=== PATIENT | female | born 1965 | race African-American/Black ===

== ENCOUNTER 2017-10-13 10:47 | Emergency (ER) | payer OTHER, SELFPAY ==
--- NOTE | 2017-10-13 14:30 | RAD ---
TWO VIEWS CHEST: History: Back pain, hip pain, cough. Date: 10-13-17 Comparison: 04-03-16 FINDINGS: There is cardiomegaly. Ectasia of the aorta is seen. The lungs are well aerated. No evidence of activ e intrathoracic disease. No evidence of effusions, pneumonia, or pneumothorax seen. IMPRESSION: Unremarkable two views chest. POS: [facility]
--- NOTE | 2017-10-13 14:32 | RAD ---
TWO VIEWS LEFT HIP: History: Pain. FINDINGS: AP and frog leg views of the left hip obtained and demonstrate no evidence of left hip fractures, sub luxations, or bony lesions. IMPRESSION: Normal two views left hip. POS: [facility]
--- NOTE | 2017-10-13 14:34 | RAD ---
LUMBAR SPINE THREE VIEWS: History: 51-year-old female with history of back and left hip pain for one month. Comparison: 04-03-15 FINDINGS: Thee is narrowing at L5-S1 and L3-4 with disc osteophytosis changes, evidence for spondylosis. No karen dence for acute fracture. Circumscribed calcific focus overlying the right abdomen probably a not emilio al calculus. Stable from prior study. IMPRESSION: Multilevel spondylosis particularly at L3-4 and L5-S1 levels. No fracture or dislocation. Stable from prior study. POS: [facility]
[2017-10-13] MEDS ORDERED: Ketorolac Tromethamine 60 MG/2 ML VIAL ONE (14:35)
== END 2017-10-13 14:17 | disposition home or self-care (01) ==
LOC: ERS 10:47
DX: M54.42 Lumbago with sciatica, left side (principal); J30.9 Allergic rhinitis, unspecified; I10 Essential (primary) hypertension; F32.9 Major depressive disorder, single episode, unspecified; F17.210 Nicotine dependence, cigarettes, uncomplicated
CPT/HCPCS: 71046; 72100; 96372; 99406; J1885

== ENCOUNTER 2017-10-22 15:09 | Emergency (ER) | payer SELFPAY ==
[2017-10-22] MEDS ORDERED: ISOVUE-370 76%-LOCM 1 ML ONE (15:15)
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
[2017-10-22 18:43] LABS: #Basophils 0.1 thou/uL (0.0-0.2); #Eosinphils 0.1 thou/uL (0.0-0.7); #Monocytes 0.6 thou/uL (0.11-0.59); #Neutrophils 2.6 thou/uL (1.40-6.50); %Basophils 1.7 % (0.0-1.0); %Lymphocytes 37.1 % (21.0-51.0); %Monocytes 11.1 % (0.0-10.0); %Neutrophils 48.1 % (42.0-75.0); Hemoglobin 12.6 g/dL (12.0-16.0); Mean Corpuscular HGB CONC 33.1 g/dL (32.0-36.0); Mean Corpuscular Hemoglobin 31.9 pg (27.0-31.0); Mean Corpuscular Volume 96.3 fl (81.0-99.0); Mean Platelet Volume 6.7 fL (7.4-10.4); Platelet Count 410 thou/uL (130-400); RBC Distribution Width 12.8 % (11.5-14.5); Red Blood Cell (RBC) Count 3.95 mill/uL (4.20-5.40); White Blood Cell (WBC) Count 5.4 thou/uL (4.8-10.8)
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
[2017-10-22] MEDS ORDERED: HYDROcodone/Acetaminophen 5/325 mg Tablet ONE (18:53)
[2017-10-22 19:00] LABS: Bilirubin Negative (Negative); Blood, Urine Negative (Negative); Clarity CLEAR (Clear); Glucose, Urine (Dipstick) Negative (Negative); Leukocyte Negative (Negative); Nitrite Negative (Negative); Protein, Urine (Dipstick) Negative (Neg-Trace); Specific Gravity, Urine 1.014 (1.002-1.036)
[2017-10-22 19:01] LABS: BHCG - Serum Negative (NEGATIVE); Pregs Control Background? CLEAR/WHITE (CLR/WHITE); Pregs Control Bar Appear? YES (CONTROL BAR)
[2017-10-22 19:03] LABS: Pregnancy Test - Urine (BHCG) Negative (Negative); Specific Gravity 1.014 (1.002-1.036)
[2017-10-22 19:04] LABS: Pregu Control Background? CLEAR/WHITE (CLR/WHITE); Pregu Control Bar Appear? YES (CONTROL BAR)
[2017-10-22 19:06] LABS: ALT (SGPT) 101 U/L (8-55); AST (SGOT) 102 U/L (5-34); Albumin 4.4 g/dL (3.5-5.0); Alkaline Phosphatase 62 U/L (40-150); Anion Gap 15 mmol/L (10-20); BUN (Urea Nitrogen) 11 mg/dL (7.0-18.7); Bilirubin, Total 0.6 mg/dL (0.2-1.2); CK (CPK) 679 U/L (29-168); Calc. Creatinine Clearance 0 mL/min (70-130); Calcium 9.8 mg/dL (7.8-10.44); Carbon Dioxide 25 mmol/L (22-29); Chloride 103 mmol/L (98-107); Estimated GFR-MDRD Greater than 90; Globulin 4.3 g/dL (2.4-3.5); Glucose 89 mg/dL (70-105); Lipase 27 U/L (8-78); Potassium 3.5 mmol/L (3.5-5.1); Protein, Total 8.7 g/dL (6.0-8.3); Sodium 139 mmol/L (136-145)
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
== END 2017-10-22 22:30 | disposition home or self-care (01) ==
LOC: ERS 15:09
DX: S00.83XA Contusion of other part of head, initial encounter (principal); M54.5 Low back pain; K04.7 Periapical abscess without sinus; R10.12 Left upper quadrant pain; I10 Essential (primary) hypertension; F32.9 Major depressive disorder, single episode, unspecified; Y04.2XXA Assault by strike against or bumped into by another person, initial encounter
CPT/HCPCS: 36415; 70450; 70486; 71260; 72125; 74177; 80053; 81003; 81025; 82550; 83690; 84703; 85025

== ENCOUNTER 2018-03-23 12:00 | Emergency (ER) | payer SELFPAY ==
[~2018-03-23 12:00] MED LIST: AMOXicillin 250 MG CAP ONE; Ibuprofen 200 MG TAB ONE; cloNIDine 0.1 MG TAB ONE; hydrOXYzine Pamoate 25 mg Capsule ONE
[2018-03-23] MEDS ORDERED: Dexamethasone 4 MG TAB ONE (13:01)
[2018-03-23] MEDS ORDERED: Famotidine 20 MG TAB ONE (13:01)
[2018-03-23] MEDS ORDERED: diphenhydrAMINE 50 MG CAP ONE (13:01)
== END 2018-03-23 14:01 | disposition home or self-care (01) ==
LOC: ERS 12:00
DX: T63.441A Toxic effect of venom of bees, accidental (unintentional), initial encounter (principal); M25.552 Pain in left hip; I10 Essential (primary) hypertension; F31.9 Bipolar disorder, unspecified; F20.9 Schizophrenia, unspecified; M19.90 Unspecified osteoarthritis, unspecified site; Z79.899 Other long term (current) drug therapy
CPT/HCPCS: 99282; J8540

== ENCOUNTER 2018-04-09 19:42 | Inpatient (IN) | payer SELFPAY ==
[2018-04-09 20:50] LABS: Bilirubin Negative (Negative); Blood, Urine Negative (Negative); Clarity CLEAR (Clear); Glucose, Urine (Dipstick) Negative (Negative); Leukocyte Trace (Negative); Nitrite Negative (Negative); Protein, Urine (Dipstick) Negative (Neg-Trace); Specific Gravity, Urine 1.015 (1.002-1.036); pH, Urine 7.5 (5.0-9.0)
[2018-04-09 20:52] LABS: Bacteria/HPF None Seen HPF (None Seen); Hyaline Casts/LPF 0-3 HYALINE CAST LPF (0-3 Hyaline); Pathc Cast-AUWi Flag 0.29 (0-2.49); RBC/HPF 0-3 HPF (0-3); Squamous Epithelial 0-3 HPF (0-3)
[2018-04-09 20:57] LABS: Pregnancy Test - Urine (BHCG) Negative (Negative); Pregu Control Background? CLEAR/WHITE (CLR/WHITE); Pregu Control Bar Appear? YES (CONTROL BAR); Specific Gravity 1.015 (1.002-1.036)
[2018-04-09 21:23] LABS: #Basophils 0.1 thou/uL (0.0-0.2); #Eosinphils 0.2 thou/uL (0.0-0.7); #Lymphocytes 3.3 thou/uL (1.20-3.40); #Monocytes 1.7 thou/uL (0.11-0.59); #Neutrophils 9.1 thou/uL (1.40-6.50); %Basophils 0.5 % (0.0-1.0); %Eosinophils 1.3 % (0.0-10.0); %Monocytes 11.5 % (0.0-10.0); %Neutrophils 63.7 % (42.0-75.0); Hemoglobin 10.9 g/dL (12.0-16.0); Mean Corpuscular HGB CONC 34.2 g/dL (32.0-36.0); Mean Corpuscular Hemoglobin 34.8 pg (27.0-31.0); Mean Platelet Volume 6.7 fL (7.4-10.4); Platelet Count 402 thou/uL (130-400); Red Blood Cell (RBC) Count 3.12 mill/uL (4.20-5.40); White Blood Cell (WBC) Count 14.3 thou/uL (4.8-10.8)
[2018-04-09 21:29] LABS: BHCG - Serum Negative (NEGATIVE); Pregs Control Background? CLEAR/WHITE (CLR/WHITE); Pregs Control Bar Appear? YES (CONTROL BAR)
[2018-04-09 21:39] LABS: ALT (SGPT) 24 U/L (8-55); AST (SGOT) 15 U/L (5-34); Albumin 3.6 g/dL (3.5-5.0); Alkaline Phosphatase 45 U/L (40-150); Anion Gap 13 mmol/L (10-20); BUN (Urea Nitrogen) 20 mg/dL (9.8-20.1); Bilirubin, Total 0.4 mg/dL (0.2-1.2); Calc. Creatinine Clearance 0 mL/min (70-130); Calcium 9.1 mg/dL (7.8-10.44); Carbon Dioxide 25 mmol/L (22-29); Chloride 103 mmol/L (98-107); Estimated GFR-MDRD 85; Globulin 3.4 g/dL (2.4-3.5); Glucose 88 mg/dL (70-105); Potassium 3.5 mmol/L (3.5-5.1); Sodium 137 mmol/L (136-145)
[2018-04-09] MEDS ORDERED: Piperacillin/Tazobactam 4.5 GM VIAL ONE (21:47)
[2018-04-09] MEDS ORDERED: Lidocaine 1% w/Epinephrine 1:100K 20 ML VIAL ONE (22:30)
[2018-04-09] MEDS ORDERED: Morphine 4 MG/ML VIAL ONE (22:31)
[2018-04-09] MEDS ORDERED: Vancomycin HCl 1.25 GM in Sodium Chloride 0.9% 250 ML 250 ML IVPB SCH (22:45)
--- NOTE | 2018-04-09 22:45 | PDOC.FPRHP ---
- History of Present Illness Chief Complaint: Leg pain History of Present Illness: Pt is a 52 yo F with pmh of cocain abuse hep C htn and alcohol abuse presenting with 2 day hx of L pain after being stung by a wasp. pt reports pain being sharp and worsening over 2 days with subjective fevers at home. On presentation to ED pt found to be tachycardic with elevated white count at 14.5. Pt was I&Dd in ED and reported some relief from that. ED Course: Incision and Drainage of superior LLE abscess - Allergies/Adverse Reactions Allergies Allergy/AdvReac Type Severity Reaction Status Date / Time No Known Allergies Allergy Verified 04/10/18 01:10 - Home Medications Medication Instructions Recorded Confirmed Type Amlodipine [Norvasc] 10 mg PO DAILY #0 tab 05/22/16 04/10/18 Rx Hydrochlorothiazide 12.5 mg PO BID #0 tab 05/22/16 04/10/18 Rx Triamcinolone Acetonide [Kenalog 1 gm TOP BID PRN #0 tube 05/22/16 Rx 0.1% Cream] Albuterol Sulfate [Ventolin HFA] 1 puff INH Q4HR PRN 04/10/18 04/10/18 History Cetirizine HCl [Cetirizine HCl 10 mg PO DAILY 04/10/18 04/10/18 History Chewable Tablet] Meloxicam 15 mg PO DAILY 04/10/18 04/10/18 History hydrOXYzine HCl [Hydroxyzine HCl] 25 mg PO 04/10/18 History - History PMHx: htn, hepC, bipolar PSHx: L lumpectomy, L oophorectomy FHx: none Social: 1/2 per day smoking, hx of cocaine abuse, hx of alcohol abuse (quit 1 month ago) - Review of Systems General: reports: fever/chills ENT: denies: nasal congestion, rhinorrhea Respiratory: denies: congestion, shortness of breath Cardiovascular: denies: chest pain, palpitation Gastrointestinal: denies: nausea, vomiting Skin: reports: lesions Musculoskeletal: denies: pain, stiffness Neurological: denies: numbness - Vital signs BP: [163/92] HR: [107] RR: [20] Tmax: [99.6] Pox: [97]% on [RA] Wt: [80] - Physical Exam Constitutional: well developed -Constitutional: in moderate distress due to pain. HEENT: normocephalic and atraumatic, EOMI, grossly normal vision, normal nasal mucosa, MMM Chest: no-tender to palpation Heart: RRR, normal S1/S2 Lungs: CTAB, no respiratory distress Abdomen: soft, non-tender Musculoskeletal: normal structure, normal tone -Skin: Skin LLE on posterior thigh: approximately [id number] area of erythema with bandage over incised abscess. possible residual cystic structures still palpated. warmth to tough, area marked with marker. Psychiatric: good judgment and insight FMR H&P: Results - Labs Result Diagrams: 04/10/18 02:29 04/10/18 02:29 Lab results: WBC 14.3 thou/uL (4.8-10.8) H 04/09/18 20:58 Hgb 10.9 g/dL (12.0-16.0) L 04/09/18 20:58 Hct 31.8 % (36.0-47.0) L 04/09/18 20:58 MCV 102.0 fL (78.0-98.0) H 04/09/18 20:58 Plt Count 402 thou/uL (130-400) H 04/09/18 20:58 Neutrophils % 63.7 % (42.0-75.0) 04/09/18 20:58 Sodium 137 mmol/L (136-145) 04/09/18 20:58 Potassium 3.5 mmol/L (3.5-5.1) 04/09/18 20:58 Chloride 103 mmol/L (98-107) 04/09/18 20:58 Carbon Dioxide 25 mmol/L (22-29) 04/09/18 20:58 BUN 20 mg/dL (9.8-20.1) 04/09/18 20:58 Creatinine 0.85 mg/dL (0.6-1.1) 04/09/18 20:58 Glucose 88 mg/dL (70-105) 04/09/18 20:58 Lactic Acid 1.1 mmol/L (0.5-2.2) 04/09/18 20:58 Calcium 9.1 mg/dL (7.8-10.44) 04/09/18 20:58 Total Bilirubin 0.4 mg/dL (0.2-1.2) 04/09/18 20:58 AST 15 U/L (5-34) 04/09/18 20:58 ALT 24 U/L (8-55) 04/09/18 20:58 Alkaline Phosphatase 45 U/L (40-150) 04/09/18 20:58 Serum Total Protein 7.0 g/dL (6.0-8.3) 04/09/18 20:58 Albumin 3.6 g/dL (3.5-5.0) 04/09/18 20:58 Urine Ketones Negative mg/dL (Negative) 04/09/18 20:30 Urine Blood Negative (Negative) 04/09/18 20:30 Urine Nitrite Negative (Negative) 04/09/18 20:30 Ur Leukocyte Esterase Trace (Negative) H 04/09/18 20:30 Urine RBC 0-3 HPF (0-3) 04/09/18 20:30 Urine WBC 7-10 HPF (0-3) H 04/09/18 20:30 Ur Squamous Epith Cells 0-3 HPF (0-3) 04/09/18 20:30 Urine Bacteria None Seen HPF (None Seen) 04/09/18 20:30 FMR H&P: A/P - Problem List (1) Cellulitis and abscess of right leg Current Visit: Yes Status: Acute Code(s): L03.115 - CELLULITIS OF RIGHT LOWER LIMB; L02.415 - CUTANEOUS ABSCESS OF RIGHT LOWER LIMB (2) Sepsis Current Visit: Yes Status: Acute Code(s): A41.9 - SEPSIS, UNSPECIFIED ORGANISM (3) Thrombocytosis Current Visit: Yes Status: Acute (4) Hepatitis C Current Visit: No Status: Acute Code(s): B19.20 - UNSPECIFIED VIRAL HEPATITIS C WITHOUT HEPATIC COMA (5) Hypertension Current Visit: No Status: Acute Code(s): I10 - ESSENTIAL (PRIMARY) HYPERTENSION (6) Polysubstance dependence including opioid type drug, episodic abuse Current Visit: No Status: Acute Code(s): F11.20 - OPIOID DEPENDENCE, UNCOMPLICATED; F19.20 - OTHER PSYCHOACTIVE SUBSTANCE DEPENDENCE, UNCOMPLICATED - Plan Sepsis secondary to lower extremity cellulitis. -tachycardia and WBC of 14. -Pt to receive 2 L NS. -s/p I&D in ED. -IV vanc -soft tissue US Macrocytic anemia - vitamin B12 and RBC folate. - likely secondary to history of alcohol abuse. Thrombocytosis - will continue to monitor. History of cocaine abuse. - remote history; will obtaine UDS History of alcohol abuse - Last drink 30 days ago. - will order ASE protocol; will hold-off on adding medications unless ASE scores > 10 HTN -home medications History of Hepatitis C infection. - currently untreated. - PCP working to obtain GI consultation Anxiety - prn hydroxyzine Back pain - continue Meloxicam. FMR H&P: Upper Level - Pertinent history Patient is a 52 year old female who presents to the ED due to leg pain for the past 3 days. She believes she have been bit by something. She reports redness, swelling and warmth to her posterior thigh. She denies fevers and chills. - Pertinent findings Vitals: BP 149/99 P: 109 RR: 20 T: 99.6 SpO2: 97% on RA. Physical exam: General: alert and oriented x 3; in no apparent distress. Heart: tachycardic, regular rhythm, no murmurs, rubs, or gallops. Lungs: Clear to auscultation bilaterally. Extremities: right posterior thigh with ~ 10 cm area of erythema and ~ 5 cm area of induration; s/p I&D. - Plan Date/Time: 04/09/182244 I, Kamilla Soliz, have evaluated this patient and agree with findings/plan as outlined by sales management intern resident. Pertinent changes/additions are listed here. Sepsis secondary to lower extremity cellulitis. - tachycardia and WBC of 14. - Pt to receive 2 L NS. - s/p I&D in ED. Macrocytic anemia - vitamin B12 and RBC folate. - likely secondary to history of alcohol abuse. Thrombocytosis - likely reactive. - will continue to monitor. History of cocaine abuse. - remote history; will obtaine UDS History of alcohol abuse - Last drink 30 days ago. - will order ASE protocol; will hold-off on adding medications unless ASE scores > 10 History of Hepatitis C infection. - currently untreated. - PCP working to obtain GI consultation Anxiety - prn hydroxyzine Back pain - continue Meloxicam. Attending Addendum - Attending Addendum Date/Time: 04/09/182038 I personally evaluated the patient and discussed the management with Dr. Bejarano and Dr. Soliz I agree with the History, Examination, Assessment and Plan documented above with any addition or exceptions noted below. 52 yo female admitted for sepsis related to abscess and cellulitis of left posterior thigh Admit for IV antibx. Blood cultures pending. Continue IVFs. Adjust home meds as needed. [facility]
[2018-04-09 23:50] LABS: Amphetamine Not Detected (NotDetected); Barbiturates Screen Not Detected (NotDetected); Benzodiazepine Screen Not Detected (NotDetected); Cocaine Metabolite Screen Not Detected (NotDetected); Medtox Reader # READER 4; Methadone Not Detected (NotDetected); Methamphetamine Not Detected (NotDetected); Opiate Screen Not Detected (NotDetected); Oxycodone Screen Not Detected (NotDetected); Phencyclidine (PCP) Not Detected (NotDetected); THC/Cannabinoid Screen Not Detected (NotDetected); Tricyclic Screen Not Detected (NotDetected)
[2018-04-09 23:51] LABS: Medtox Control Line Valid? VALID (VALID)
[2018-04-10] MEDS ORDERED: Sodium Chloride 0.9% 1,000 ML IV SCH (00:45)
[2018-04-10] MEDS ORDERED: Acetaminophen 325 MG TAB PO PRN (00:46)
[2018-04-10] MEDS ORDERED: Ondansetron HCl/PF 4 MG/2 ML Vial IVP PRN (00:46)
[2018-04-10] MEDS ORDERED: HYDROcodone/Acetaminophen 5/325 mg Tablet PO PRN ×2 (00:46)
[2018-04-10] MEDS ORDERED: Ondansetron ODT 4 MG TAB SL PRN (00:46)
[2018-04-10] MEDS ORDERED: Clindamycin/D5W 900 MG in Premix Bag 1 BAG IVPB SCH (01:00)
[2018-04-10] MEDS ORDERED: Ondansetron ODT 4 MG TAB PO PRN (01:03)
[2018-04-10 01:14] VITALS: BMI 29.8
[2018-04-10] MEDS: traMADol HCl 50 MG TAB PO PRN ×4 (01:54→18:01)
[2018-04-10] MEDS: Lactated Ringer's 1,000 ML IV SCH ×3 (01:56→14:33)
[2018-04-10] MEDS: Nicotine 14 MG PATCH TD SCH (02:05)
[2018-04-10 02:59] LABS: #Basophils 0.2 thou/uL (0.0-0.2); #Eosinphils 0.2 thou/uL (0.0-0.7); #Lymphocytes 3.7 thou/uL (1.20-3.40); #Monocytes 1.4 thou/uL (0.11-0.59); #Neutrophils 8.8 thou/uL (1.40-6.50); %Basophils 1.2 % (0.0-1.0); %Eosinophils 1.7 % (0.0-10.0); %Lymphocytes 26.2 % (21.0-51.0); %Monocytes 9.5 % (0.0-10.0); %Neutrophils 61.4 % (42.0-75.0); Hemoglobin 11.5 g/dL (12.0-16.0); Mean Corpuscular HGB CONC 33.1 g/dL (32.0-36.0); Mean Corpuscular Hemoglobin 33.6 pg (27.0-31.0); Mean Platelet Volume 6.7 fL (7.4-10.4); Platelet Count 437 thou/uL (130-400); RBC Distribution Width 12.9 % (11.5-14.5); White Blood Cell (WBC) Count 14.3 thou/uL (4.8-10.8)
[2018-04-10 03:05] LABS: Anion Gap 13 mmol/L (10-20); BUN (Urea Nitrogen) 14 mg/dL (9.8-20.1); Calc. Creatinine Clearance 99 mL/min (70-130); Carbon Dioxide 25 mmol/L (22-29); Chloride 104 mmol/L (98-107); Estimated GFR-MDRD 90; Glucose 97 mg/dL (70-105); Potassium 3.9 mmol/L (3.5-5.1); Sodium 138 mmol/L (136-145)
[2018-04-10] MEDS ORDERED: Triamcinolone 0.1% Cream 15 GM TUBE TOP PRN (04:35)
[2018-04-10] MEDS ORDERED: PROVENTIL INHALER 6.7 G (200 INHALATIONS) INH PRN (04:35)
--- NOTE | 2018-04-10 05:38 | PDOC.FM ---
- Subjective Subjective: NAEO. Patient states she is in 10/10 pain this AM. Denies any associated fever/ chills, N/V/D or constipation. Says her appetite is good. Thinks the swelling and redness have worsened overnight. Was not able to sleep at all 2/2 anxiety. - Objective MAR Reviewed: Yes Vital Signs & Weight: Vital Signs (12 hours) Temp Pulse Resp BP Pulse Ox 04/10/18 04:00 99.9 F H 103 H 20 155/84 H 93 L 04/10/18 00:50 99.7 F H 106 H 20 151/98 H 94 L Weight Weight 76.402 kg I&O: 04/08/18 04/09/18 04/10/18 06:59 06:59 06:59 Intake Total 1080 Balance 1080 Result Diagrams: 04/10/18 02:29 04/10/18 02:29 <Jocelyn Lazaro - Last Filed: 04/10/18 08:29> - Objective Vital Signs & Weight: Vital Signs (12 hours) Temp Pulse Resp BP BP Pulse Ox 04/10/18 10:11 99.8 F H 04/10/18 08:46 101 H 04/10/18 08:00 159/99 H 04/10/18 07:45 101.3 F H 101 H 18 159/99 H 94 L 04/10/18 04:00 99.9 F H 103 H 20 155/84 H 93 L 04/10/18 00:50 99.7 F H 106 H 20 151/98 H 94 L Weight Weight 76.402 kg I&O: 04/09/18 04/10/18 04/11/18 06:59 06:59 06:59 Intake Total 1080 Balance 1080 Result Diagrams: 04/10/18 02:29 04/10/18 02:29 <Gaurav Degroot - Last Filed: 04/10/18 11:33> Phys Exam - Physical Examination Constitutional: NAD HEENT: moist MMs Neck: supple, full ROM Respiratory: no wheezing, no rales, no rhonchi, clear to auscultation bilateral Cardiovascular: RRR, no significant murmur Gastrointestinal: soft, non-tender, no distention, positive bowel sounds Musculoskeletal: edema present Neurological: non-focal, normal sensation, moves all 4 limbs Psychiatric: normal affect, A&O x 3 Skin: normal turgor Deviation from normal: ~ 11 x 7cm area of warmth & erythema w/ an ~ 5 cm area of induration -: purulent, sanguinous drainage noted under clear bandage over I&D site <Jocelyn Lazaro - Last Filed: 04/10/18 08:29> Dx/Plan (1) Sepsis Code(s): A41.9 - SEPSIS, UNSPECIFIED ORGANISM Status: Acute (2) Cellulitis and abscess of right leg Code(s): L03.115 - CELLULITIS OF RIGHT LOWER LIMB; L02.415 - CUTANEOUS ABSCESS OF RIGHT LOWER LIMB Status: Acute (3) Polysubstance dependence including opioid type drug, episodic abuse Code(s): F11.20 - OPIOID DEPENDENCE, UNCOMPLICATED; F19.20 - OTHER PSYCHOACTIVE SUBSTANCE DEPENDENCE, UNCOMPLICATED Status: Acute (4) Hepatitis C Code(s): B19.20 - UNSPECIFIED VIRAL HEPATITIS C WITHOUT HEPATIC COMA Status: Acute (5) Macrocytic anemia Code(s): D53.9 - NUTRITIONAL ANEMIA, UNSPECIFIED Status: Acute (6) Hypertension Code(s): I10 - ESSENTIAL (PRIMARY) HYPERTENSION Status: Acute (7) Thrombocytosis Status: Acute - Plan Plan: 52 YOF w/ PMH significant for HTN and polysubstance use who presented w/ cellulitis of RLE w/ abscess who is s/p I&D in the ED. 1. Sepsis secondary to RLE cellulitis w/ abscess s/p I&D. - Patient has remained tachycardic since getting to the floor but has remained afebrile. Will continue w/ LR @ 120mL/hr for fluid resuscitation in addition to PO hydration. - Will continue IV vancomycin. Abscess cultures pending as well as blood cultures. RLE U/S pending to determine if another I&D will be needed. - Will continue tylenol, meloxicam, & tramadol PRN for pain control and zofran for nausea. - Will continue to monitor vitals closely & continue tylenol PRN for fever. 2. Macrocytic anemia: - Likely 2/2 EtOH abuse vs. B12 vs. folate deficiency. - Will continue to monitor and consider workup if one has not been done on previous admissions. 3. Thrombocytosis - Likely reactive thrombocytosis 2/2 inflammation from cellulitis. - Will continue to monitor w/ QD CBCs. 4. HTN: - Aware, will resume home meds. 5. History of cocaine abuse. - Remote history per H&P. - UDS negative on admission. 6. History of alcohol abuse - Last drink 30 days ago per H&P. - Will continue ASE protocol. 7. h/o Hepatitis C infection. - Aware. - Currently untreated but PCP is working to obtain GI consultation on outpatient basis for treatment. 8. h/o chronic back pain: - Aware. - Will continue tylenol, meloxicam, and tramadol for pain control. 9. Anxiety: - Will continue hydroxyzine PRN for now. - Patient states she takes something at home for anxiety. Will look in clinic chart and restart any home meds if possible. <Jocelyn Lazaro - Last Filed: 04/10/18 08:29> Attending Addendum - Attending Addendum Date/Time: 04/10/18 1131 I personally evaluated the patient and discussed the management with Dr. Lazaro. I agree with the History, Examination, Assessment and Plan documented above with any addition or exceptions noted below. Patient admitted for sepsis 2/2 complicated cellulitis with abscess formation s/ p I&D in the ER. She continues to experience pain and have spiking fevers on Vanc therapy. U/S shows continued fluid collection, and so we will consult General Surgery for bedside I&D versus need for I&D and wound cleanout in the OR. Continue Vanc but add Clinda at this time for toxin binding properties. Blood and wound cultures pending. Continue fluid therapy and attain adequate pain control. Anticipate several more days of hospitalization needed. <Gaurav Degroot - Last Filed: 04/10/18 11:33>
[2018-04-10] MEDS ORDERED: Piperacillin/Tazobactam 4.5 GM in Sodium Chloride 0.9% 100 ML IVPB SCH (06:00)
[2018-04-10] MEDS: Hydrochlorothiazide 25 MG TAB PO SCH ×2 (08:45→20:02)
[2018-04-10] MEDS: Famotidine 20 MG TAB PO SCH ×2 (08:45→20:02)
[2018-04-10] MEDS: Meloxicam 15 MG TAB PO SCH (08:45)
[2018-04-10] MEDS: Loratadine 10 MG TAB PO SCH (08:46)
[2018-04-10] MEDS: Enoxaparin Sodium 40 MG/0.4 ML SYRINGE SC SCH (08:46)
[2018-04-10] MEDS: Amlodipine 10 MG TAB PO SCH (08:46)
--- NOTE | 2018-04-10 09:27 | ULT ---
ULTRASOUND SOFT TISSUE OTHER: HISTORY: Left thigh cellulitis after an I&D. COMPARISON: None. FINDINGS: There is extensive inflammation in the subcutaneous fat. There is an area of phlegmonous soft tissue measuring 2.2 x 1.9 cm. There is extensive fluid interdigitation between the fascial septations. IMPRESSION: Evidence of cellulitis and phlegmonous soft tissue collection. POS: [facility]
[2018-04-10] MEDS: Vancomycin HCl 1.25 GM in Sodium Chloride 0.9% 250 ML 250 ML IVPB SCH ×2 (10:07→22:43)
[2018-04-10] MEDS ORDERED: Ketorolac Tromethamine 30 MG/ML VIAL IVP SCH (12:15)
[2018-04-10] MEDS: hydrOXYzine 25 MG TAB PO PRN ×2 (13:12→22:43)
[2018-04-10] MEDS: Clindamycin/D5W 600 MG in Premix Bag 1 BAG IVPB SCH ×2 (13:12→20:01)
--- NOTE | 2018-04-10 13:20 | OP ---
DATE OF PROCEDURE: 04/10/2018 PREOPERATIVE DIAGNOSIS: Left posterior thigh abscess. PREOPERATIVE DIAGNOSIS: Left posterior thigh abscess. PROCEDURES PERFORMED: Incision and drainage of a left posterior thigh abscess. INDICATIONS FOR PROCEDURE: A 52-year-old -[place] woman presented with a 4-day history of a painful flocculence in the left posterior thigh. This wound was initially incised and drained in the Emergency Department. I was asked to evaluate the patient for possible wound exploration. Findings are consistent with a 2 x 1 cm flocculence under the previous small incision with minimum drainage. There is surrounding erythema and soft tissue swelling present. The wound is sterilely prepped and draped in usual fashion after informed consent was obtained. The wound bed was generously infiltrate d with 1% lidocaine. A crucifix incision was made over the dome of the wound using an 11 scalpel. W ound is explored with a sterile Q-tip, no tunneling present. Wound is then packed with quarter inch iodoform gauze. A 4 x 4 sterile gauze was placed over this and secured with tape. Patient tolerated procedure without any apparent complication. I would recommend warm compresses three times daily an d p.r.n. dressing changes. Antibiotics is to be continued per Primary Service. The patient tolerate d the procedure without any apparent complication and remains hemodynamically stable following comple tion of the procedure.
[2018-04-10] MEDS ORDERED: traMADol HCl 50 MG TAB PO SCH (20:15)
[2018-04-11] MEDS: Nicotine 14 MG PATCH TD SCH (01:35)
[2018-04-11] MEDS: Lactated Ringer's 1,000 ML IV SCH ×3 (02:31→11:09)
[2018-04-11] MEDS: traMADol HCl 50 MG TAB PO PRN ×4 (02:33→19:56)
[2018-04-11] MEDS: Clindamycin/D5W 600 MG in Premix Bag 1 BAG IVPB SCH ×3 (04:10→20:13)
--- NOTE | 2018-04-11 05:52 | PDOC.FM ---
- Subjective Subjective: NAEO. Patient states her pain is better today compared to yesterday. Is able to ambulate without too much pain or difficulty. Denies any fever/chills, N/V/D, CP , or SOB. States her appetite is good but did not sleep well last night. - Objective MAR Reviewed: Yes Vital Signs & Weight: Vital Signs (12 hours) Temp Pulse Resp BP BP Pulse Ox 04/11/18 04:18 99.8 F H 04/11/18 04:00 99.7 F H 100 20 145/83 H 93 L 04/11/18 00:00 98.5 F 94 20 113/72 95 04/10/18 20:00 120/68 96 04/10/18 19:39 98.2 F 92 18 120/68 96 Weight Weight 76.402 kg I&O: 04/09/18 04/10/18 04/11/18 06:59 06:59 06:59 Intake Total 1080 Balance 1080 Result Diagrams: 04/11/18 06:42 04/10/18 02:29 <Jocelyn Lazaro - Last Filed: 04/11/18 08:57> - Objective Vital Signs & Weight: Vital Signs (12 hours) Temp Pulse Resp BP BP Pulse Ox 04/11/18 08:47 98.3 F 92 14 132/89 98 04/11/18 08:14 100 04/11/18 04:18 99.8 F H 04/11/18 04:00 99.7 F H 100 20 145/83 H 93 L 04/11/18 00:00 98.5 F 94 20 113/72 95 Weight Weight 76.402 kg I&O: 04/10/18 04/11/18 04/12/18 06:59 06:59 06:59 Intake Total 1080 2320 Balance 1080 2320 Result Diagrams: 04/11/18 06:42 04/10/18 02:29 <Gaurav Degroot - Last Filed: 04/11/18 09:26> Phys Exam - Physical Examination Constitutional: NAD HEENT: moist MMs, sclera anicteric Neck: supple, full ROM Respiratory: no wheezing, no rales, no rhonchi, clear to auscultation bilateral Cardiovascular: RRR, no significant murmur Gastrointestinal: soft, non-tender, no distention, positive bowel sounds Neurological: non-focal, moves all 4 limbs Psychiatric: normal affect, A&O x 3 Skin: normal turgor Deviation from normal: ~ 11 x 7cm area of warmth & erythema w/ an ~ 5 cm area of induration -: Bloody, somewhat purulent discharge noted on dressing covering wound <Jocelyn Lazaro - Last Filed: 04/11/18 08:57> Dx/Plan (1) Cellulitis of leg, left Code(s): L03.116 - CELLULITIS OF LEFT LOWER LIMB Status: Acute (2) Sepsis Code(s): A41.9 - SEPSIS, UNSPECIFIED ORGANISM Status: Resolved (3) Polysubstance dependence including opioid type drug, episodic abuse Code(s): F11.20 - OPIOID DEPENDENCE, UNCOMPLICATED; F19.20 - OTHER PSYCHOACTIVE SUBSTANCE DEPENDENCE, UNCOMPLICATED Status: Acute (4) Hepatitis C Code(s): B19.20 - UNSPECIFIED VIRAL HEPATITIS C WITHOUT HEPATIC COMA Status: Chronic (5) Macrocytic anemia Code(s): D53.9 - NUTRITIONAL ANEMIA, UNSPECIFIED Status: Chronic (6) Hypertension Code(s): I10 - ESSENTIAL (PRIMARY) HYPERTENSION Status: Chronic (7) Thrombocytosis Status: Resolved - Plan Plan: 52 YOF w/ PMH significant for HTN and polysubstance use who presented w/ cellulitis of LLE w/ abscess who is s/p I&D in the ED. 1. Sepsis secondary to LLE cellulitis w/ abscess s/p I&D x 2. - Patient has remained borderline tachycardic but has been afebrile overnight. WBC down to 10.1 this AM. - Will continue w/ LR @ 120mL/hr for fluid resuscitation in addition to PO hydration as patient remains borderline tachycardic. - Will consider switching to PO Abx today in prep for possible d/c later if patient remains afebrile and pain is well-controlled. - preliminary abscess cultures showed gram + cocci in cluster therefore likely MSSA or MRSA infection. - preliminary blood cultures show no growth at 48 hours. - Will continue tylenol, meloxicam, & tramadol PRN for pain control and zofran for nausea. - Will continue to monitor vitals closely & continue tylenol PRN for fever. 2. Macrocytic anemia: - Likely 2/2 EtOH abuse vs. B12 vs. folate deficiency. - B12 levels were WNL. - RBC folate pending. 3. Thrombocytosis - Resolved as platelets were WNL at 395 this AM. - Likely reactive thrombocytosis 2/2 inflammation from cellulitis. - Will continue to monitor w/ QD CBCs. 4. HTN: - Aware, will resume home meds. 5. History of cocaine abuse. - Remote history per H&P. - UDS negative on admission. 6. History of alcohol abuse - Last drink 30 days ago per H&P. - Will continue ASE protocol. 7. h/o Hepatitis C infection. - Aware. - Currently untreated but PCP is working to obtain GI consultation on outpatient basis for treatment. 8. h/o chronic back pain: - Aware. - Will continue tylenol, meloxicam, and tramadol for pain control. 9. Anxiety: - Will continue home meds, hydroxyzine PRN. Dispo: Will consider d/c later today if patient tolerate PO intake and pain remains well-controlled on PO meds. IVFs: LR @ 120mL/hr Abx: Clinda and vanc IV Diet: regular <Jocelyn Lazaro - Last Filed: 04/11/18 08:57> Attending Addendum - Attending Addendum Date/Time: 04/11/18923 I personally evaluated the patient and discussed the management with Dr. Lazaro. I agree with the History, Examination, Assessment and Plan documented above with any addition or exceptions noted below. Patient feeling well today and able to ambulate but has significant pain. We will work to get her pain under better control today. Continue IV antibiotics today and await sensitivities for her Staph abscess and cellulitis. Likely transition to PO abx at that time and hopeful d/c tomorrow morning if fever curve normalizing. Wound care to be consulted. <Gaurav Degroot - Last Filed: 04/11/18 09:26>
[2018-04-11 06:59] LABS: Hemoglobin 11.2 g/dL (12.0-16.0); Mean Corpuscular HGB CONC 33.5 g/dL (32.0-36.0); Mean Platelet Volume 6.5 fL (7.4-10.4); Platelet Count 395 thou/uL (130-400); RBC Distribution Width 12.7 % (11.5-14.5); White Blood Cell (WBC) Count 10.1 thou/uL (4.8-10.8)
[2018-04-11 07:32] LABS: Band 3 % (5-11); Eosinophils 11 % (0-10); Lymphocytes 26 % (21-51); MDiff Complete? YES; Monocytes 9 % (0-10); Neutrophil 50 % (42-75); PLT Morphology Comment Appears Adequate; Polychromasia SLIGHT = 2-3 cells (100X) (0-2/hpf); Reactive Lymphocytes 1 % (0-10)
[2018-04-11] MEDS: Famotidine 20 MG TAB PO SCH ×2 (08:14→19:56)
[2018-04-11] MEDS: Amlodipine 10 MG TAB PO SCH (08:14)
[2018-04-11] MEDS: Hydrochlorothiazide 25 MG TAB PO SCH ×2 (08:14→19:56)
[2018-04-11] MEDS: Meloxicam 15 MG TAB PO SCH (08:14)
[2018-04-11] MEDS: Loratadine 10 MG TAB PO SCH (08:14)
[2018-04-11] MEDS: Enoxaparin Sodium 40 MG/0.4 ML SYRINGE SC SCH (08:15)
[2018-04-11 11:51] LABS: Vancomycin, Trough 10.6 ug/mL
--- NOTE | 2018-04-11 13:22 | PRG ---
DATE OF SERVICE: 04/11/2018 SUBJECTIVE: The patient is status post 1 day I and D of a left hamstring, upper leg abscess and cell ulitis. Wound evaluated. No additional fevers. The patient feeling better, tolerating p.o. well. Her white blood cell count has downtrended, and she has remained afebrile. Microbiology shows Staph A, awaiting on sensitivities from the wound culture. OBJECTIVE: VITAL SIGNS: Temperature is 98.5, blood pressure 123/81, heart rate is 93, respiratory rate is 20, O 2 98% on room air. GENERAL: This is a 52-year-old female sitting up in bed in no acute distress. HEENT: Normocephalic and atraumatic. Trachea is midline. RESPIRATORY: Equal rise and fall. No respiratory distress. CARDIOVASCULAR: Regular rate and rhythm. No edema is appreciated. SKIN/EXTREMITIES: I have evaluated the wound at the upper posterior lower left leg. The incision si te still has some purulence being able to be expressed. There is no fluctuance, no induration. Mini mal surrounding erythema. No streaking erythema. Minimally tender. I have changed the dressing at the bedside. She has no edema. Strong peripheral pulses in all extremities. PSYCHIATRIC: Normal mood and affect. NEUROLOGIC: Alert and oriented to person, place, time, and event. MICROBIOLOGY: Again staph A from wound culture, awaiting sensitivities. LABORATORY DATA: White blood cell 10.1 with no bandemia or leftward shift this morning. ASSESSMENT: Soft tissue abscess. PLAN: I and D completed yesterday. We will continue to drain. No signs of continued abscess, worse luigi condition, or profound cellulitis. The patient is hemodynamically stable, afebrile, and culture s are pending. Likely can deescalate antibiotics. This patient is on clindamycin and vancomycin, anton th will cover MRSA. From a surgical standpoint, we will sign off. Please consult if there are any c hanges or any other questions. Welcomed to call us back to the remainder for the primary team.
[2018-04-11 14:22] LABS: Folate,Hemolysate 378.9 ng/mL (Not Estab.); Hematocrit 33.4 % (34.0-46.6); RBC Folate Test Component 1134 ng/mL (>498)
[2018-04-11] MEDS: Vancomycin HCl 1.25 GM in Sodium Chloride 0.9% 250 ML 250 ML IVPB SCH (15:24)
[2018-04-11] MEDS ORDERED: Loperamide HCl 2 MG CAP PO PRN (23:23)
[2018-04-12] MEDS ORDERED: Loperamide HCl 2 MG CAP PO PRN (00:02)
[2018-04-12] MEDS: Nicotine 14 MG PATCH TD SCH (02:44)
[2018-04-12] MEDS: Vancomycin HCl 1.25 GM in Sodium Chloride 0.9% 250 ML 250 ML IVPB SCH ×2 (03:32→14:46)
[2018-04-12] MEDS: Lactated Ringer's 1,000 ML IV SCH (03:32)
[2018-04-12 04:44] LABS: #Basophils 0.1 thou/uL (0.0-0.2); #Eosinphils 0.5 thou/uL (0.0-0.7); #Monocytes 0.8 thou/uL (0.11-0.59); #Neutrophils 2.7 thou/uL (1.40-6.50); %Basophils 1.6 % (0.0-1.0); %Eosinophils 8.3 % (0.0-10.0); %Lymphocytes 32.8 % (21.0-51.0); %Monocytes 12.6 % (0.0-10.0); %Neutrophils 44.6 % (42.0-75.0); Hemoglobin 10.5 g/dL (12.0-16.0); Mean Corpuscular HGB CONC 32.5 g/dL (32.0-36.0); Mean Platelet Volume 6.6 fL (7.4-10.4); Platelet Count 347 thou/uL (130-400); RBC Distribution Width 12.8 % (11.5-14.5); Red Blood Cell (RBC) Count 3.18 mill/uL (4.20-5.40); White Blood Cell (WBC) Count 6.1 thou/uL (4.8-10.8)
[2018-04-12] MEDS ORDERED: Nicotine 14 MG PATCH TD SCH (06:00)
[2018-04-12] MEDS: Clindamycin/D5W 600 MG in Premix Bag 1 BAG IVPB SCH ×2 (06:16→12:11)
--- NOTE | 2018-04-12 06:17 | PDOC.FM ---
- Subjective Subjective: Denies nausea this morning, states she had 3 episodes of diarrhea overnight. Hungry this morning. - Objective Vital Signs & Weight: Vital Signs (12 hours) Temp Pulse Resp BP BP Pulse Ox 04/12/18 04:00 97.4 F L 86 18 117/78 117/78 95 04/12/18 00:00 98.1 F 89 16 134/78 134/78 95 04/11/18 20:00 99.0 F 99 18 130/86 130/86 94 L Weight Weight 76.402 kg I&O: 04/10/18 04/11/18 04/12/18 06:59 06:59 06:59 Intake Total 1080 2320 1500 Balance 1080 2320 1500 Result Diagrams: 04/12/18 04:02 04/10/18 02:29 <Jael Scott - Last Filed: 04/12/18 10:22> - Objective Vital Signs & Weight: Vital Signs (12 hours) Temp Pulse Resp BP BP Pulse Ox 04/12/18 08:26 86 117/78 04/12/18 04:00 97.4 F L 86 18 117/78 117/78 95 04/12/18 00:00 98.1 F 89 16 134/78 134/78 95 Weight Weight 76.402 kg I&O: 04/11/18 04/12/18 04/13/18 06:59 06:59 06:59 Intake Total 2320 3670 Balance 2320 3670 Result Diagrams: 04/12/18 04:02 04/10/18 02:29 <Gaurav Degroot - Last Filed: 04/12/18 10:39> Phys Exam - Physical Examination HEENT: PERRLA, moist MMs Neck: no nodes, supple Respiratory: no wheezing, no rales, no rhonchi, clear to auscultation bilateral Cardiovascular: RRR, no significant murmur Gastrointestinal: soft, positive bowel sounds Musculoskeletal: no edema, pulses present Psychiatric: normal affect, A&O x 3 Deviation from normal: thigh wound draining, very TTP this morning. Clean dressing covers wound <Jael Scott - Last Filed: 04/12/18 10:22> Dx/Plan (1) Cellulitis of leg, left Code(s): L03.116 - CELLULITIS OF LEFT LOWER LIMB Status: Acute (2) Sepsis Code(s): A41.9 - SEPSIS, UNSPECIFIED ORGANISM Status: Resolved (3) Gastroenteritis Code(s): K52.9 - NONINFECTIVE GASTROENTERITIS AND COLITIS, UNSPECIFIED Status : Acute (4) Anxiety Code(s): F41.9 - ANXIETY DISORDER, UNSPECIFIED Status: Chronic (5) Thrombocytosis Status: Acute (6) Hepatitis C Code(s): B19.20 - UNSPECIFIED VIRAL HEPATITIS C WITHOUT HEPATIC COMA Status: Chronic (7) Hypertension Code(s): I10 - ESSENTIAL (PRIMARY) HYPERTENSION Status: Chronic (8) Macrocytic anemia Code(s): D53.9 - NUTRITIONAL ANEMIA, UNSPECIFIED Status: Chronic (9) Hx of cocaine abuse Code(s): Z87.898 - PERSONAL HISTORY OF OTHER SPECIFIED CONDITIONS Status: Chronic (10) Chronic back pain Code(s): M54.9 - DORSALGIA, UNSPECIFIED; G89.29 - OTHER CHRONIC PAIN Status: Chronic (11) History of alcohol abuse Code(s): Z87.898 - PERSONAL HISTORY OF OTHER SPECIFIED CONDITIONS Status: Chronic - Plan Plan: 52 YOF w/ PMH significant for HTN and polysubstance use who presented w/ cellulitis of LLE w/ abscess who is s/p I&D in the ED. Sepsis secondary to LLE cellulitis w/ abscess s/p I&D x 2. - Patient VSS overnight. WBC improved to 6.9. - Plan to d/c IV fluids if patient able to tolerate PO - Switch to PO Abx today in prep for possible d/c later if patient remains afebrile and pain is well-controlled. - abscess cultures showed MRSA infection, sensitive to clinda and doxycycline - preliminary blood cultures show NGTD - Will continue tylenol, meloxicam, & tramadol PRN for pain control and zofran for nausea. - 1x dose of toradol for pain today - tylenol PRN for fever Gastroenteritis, probably 2/2 antibiotics -Diarrhea 3x last night -C dif pending Macrocytic anemia - B12 levels were WNL. - RBC folate WNL Thrombocytosis - Resolved as platelets were WNL at 347 - Likely reactive thrombocytosis 2/2 inflammation from cellulitis. HTN: - Aware, will resume home meds. History of cocaine abuse. - Remote history per H&P. - UDS negative on admission. History of alcohol abuse - Last drink 30 days ago per H&P. - Will continue ASE protocol. h/o Hepatitis C infection. - Currently untreated but PCP is working to obtain GI consultation on outpatient basis for treatment. h/o chronic back pain: - Will continue tylenol, meloxicam, and tramadol for pain control. Anxiety: - Will continue home meds, hydroxyzine PRN. Dispo: pending patient tolerate PO intake and pain remains well-controlled on PO meds. <Jael Scott - Last Filed: 04/12/18 10:22> Attending Addendum - Attending Addendum Date/Time: 04/12/18 1037 I personally evaluated the patient and discussed the management with Dr. Scott. I agree with the History, Examination, Assessment and Plan documented above with any addition or exceptions noted below. Patient feeling well and pain is controlled on oral medications. WBC normal and she is now afebrile. She will be transitioned to PO Clindamycin therapy today. She did have some diarrhea overnight that is likely due to GI upset, but will check Cdiff screen. If negative, patient will be discharged home on oral abx with outpatient follow up. <Gaurav Degroot - Last Filed: 04/12/18 10:39>
[2018-04-12] MEDS: Meloxicam 15 MG TAB PO SCH (08:26)
[2018-04-12] MEDS: Hydrochlorothiazide 25 MG TAB PO SCH (08:26)
[2018-04-12] MEDS: Amlodipine 10 MG TAB PO SCH (08:26)
[2018-04-12] MEDS: Famotidine 20 MG TAB PO SCH (08:26)
[2018-04-12] MEDS: Loratadine 10 MG TAB PO SCH (08:27)
[2018-04-12] MEDS: Enoxaparin Sodium 40 MG/0.4 ML SYRINGE SC SCH (08:29)
[2018-04-12] MEDS ORDERED: Ketorolac Tromethamine 30 MG/ML VIAL IVP SCH (10:15)
[2018-04-12] MEDS: traMADol HCl 50 MG TAB PO PRN (11:21)
[2018-04-12 12:01] VITALS: TEMP 98.3
[2018-04-12] MEDS: hydrOXYzine 25 MG TAB PO PRN (14:46)
[2018-04-12 16:10] VITALS: BP 130/79
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
--- NOTE | 2018-04-19 11:17 | EKG ---
Test Reason : Blood Pressure : / mmHG Vent. Rate : 119 BPM Atrial Rate : 119 BPM P-R Int : 130 ms QRS Dur : 084 ms QT Int : 306 ms P-R-T Axes : 040 -02 121 degrees QTc Int : 430 ms Sinus tachycardia Left ventricular hypertrophy with repolarization abnormality Abnormal ECG Confirmed by MIKE UNGER M.D. ([id number]), film editor supervisor CHRISTIANO MURPHY ([id number]) on 04/19/2018 11:17:16 AM Referred By: Confirmed By:MIKE UNGER M.D.
== END 2018-04-12 18:32 | disposition home or self-care (01) | DRG 854 ==
LOC: ERS 19:42 → T4-A 04-10 00:45
PROVIDERS: ADMIT Student in an Organized Health Care Education/Training Program; ATTEND Student in an Organized Health Care Education/Training Program
PROC: 0J9M0ZZ Drainage of Left Upper Leg Subcutaneous Tissue and Fascia, Open Approach (ICD-10-PCS; principal; 2018-04-10)
PROC: 0J9M0ZZ Drainage of Left Upper Leg Subcutaneous Tissue and Fascia, Open Approach (ICD-10-PCS; 2018-04-10)
DX: A41.02 Sepsis due to Methicillin resistant Staphylococcus aureus (principal); L02.416 Cutaneous abscess of left lower limb; K52.1 Toxic gastroenteritis and colitis; F11.20 Opioid dependence, uncomplicated; I10 Essential (primary) hypertension; T36.95XA Adverse effect of unspecified systemic antibiotic, initial encounter; D53.9 Nutritional anemia, unspecified; D47.3 Essential (hemorrhagic) thrombocythemia; F41.9 Anxiety disorder, unspecified; K75.9 Inflammatory liver disease, unspecified; Z87.898 Personal history of other specified conditions
CPT/HCPCS: 10060; 36415; 76999; 80048; 80053; 80202; 80306; 81003; 81015; 81025; 82607; 82747; 83605; 84703; 85025; 87040; 87070; 87077; 87186; 87205; 87324; 87449; 93005; 96361; 96365; 96367; 96375; J1650; J1885; J2001; J2270; J2543; J3370; J3490; J7050

== ENCOUNTER 2018-05-02 09:27 | Emergency (ER) | payer SELFPAY ==
--- NOTE | 2018-05-02 10:56 | RAD ---
TWO VIEWS LEFT HIP: INDICATION: Pain. FINDINGS: There is no fracture, dislocation, or significant arthropathy of the left hip. IMPRESSION: No acute osseous abnormality. POS: KATRIN
--- NOTE | 2018-05-02 11:01 | RAD ---
FRONTAL VIEW CHEST: Date: 05/02/18 INDICATION: Cough. FINDINGS: There is stable size of the cardiomediastinal silhouette. No consolidation, effusion, or pneumothorax . No free air beneath the hemidiaphragms. Osseous structures are stable. IMPRESSION: 1. Stable chest, without focal consolidation. 2. Borderline enlargement of cardiomediastinal silhouette, similar in appearance. Correlate clinical ly. POS: KATRIN
== END 2018-05-02 11:37 | disposition home or self-care (01) ==
LOC: ERS 09:27
DX: M25.552 Pain in left hip (principal); G89.29 Other chronic pain; R05 Cough; M19.90 Unspecified osteoarthritis, unspecified site; I10 Essential (primary) hypertension; F41.9 Anxiety disorder, unspecified; F31.9 Bipolar disorder, unspecified; F20.9 Schizophrenia, unspecified; F17.210 Nicotine dependence, cigarettes, uncomplicated; Z71.6 Tobacco abuse counseling
CPT/HCPCS: 71045; 99406

== ENCOUNTER 2018-12-16 02:21 | Emergency (ER) | payer SELFPAY ==
[2018-12-16] MEDS ORDERED: Bacitracin Zinc 1 Packet ONE (04:03)
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
--- NOTE | 2018-12-16 08:04 | CT ---
CT facial bones without contrast: Final report I agree with the report given by Dr. Cuello tomography
[2018-12-16 12:55] LABS: BHCG - Serum Negative (NEGATIVE); Pregs Control Background? CLEAR/WHITE (CLR/WHITE); Pregs Control Bar Appear? YES (CONTROL BAR)
[2018-12-16 13:00] LABS: Red Blood Cell (RBC) Count 3.75 mill/uL (4.20-5.40)
[2018-12-16 13:13] LABS: ALT (SGPT) 66 U/L (8-55); AST (SGOT) 111 U/L (5-34); Albumin 3.9 g/dL (3.5-5.0); Alkaline Phosphatase 45 U/L (40-150); Anion Gap 14 mmol/L (10-20); BUN (Urea Nitrogen) 5 mg/dL (9.8-20.1); Bilirubin, Total 0.5 mg/dL (0.2-1.2); CK (CPK) 394 U/L (29-168); Calc. Creatinine Clearance 0 mL/min (70-130); Calcium 9.1 mg/dL (7.8-10.44); Carbon Dioxide 25 mmol/L (22-29); Chloride 105 mmol/L (98-107); Eosinophils 4 % (0-10); Estimated GFR-MDRD Greater than 90; Globulin 3.4 g/dL (2.4-3.5); Glucose 81 mg/dL (70-105); Hemoglobin 12.3 g/dL (12.0-16.0); Lymphocytes 70 % (21-51); MDiff Complete? YES; Mean Corpuscular HGB CONC 32.9 g/dL (32.0-36.0); Mean Corpuscular Hemoglobin 32.7 pg (27.0-31.0); Mean Corpuscular Volume 99.5 fL (78.0-98.0); Mean Platelet Volume 6.4 fL (7.4-10.4); Monocytes 4 % (0-10); Neutrophil 21 % (42-75); Platelet Count 277 thou/uL (130-400); Platelet Morphology Comment Appears Adequate; Potassium 3.5 mmol/L (3.5-5.1); Protein, Total 7.3 g/dL (6.0-8.3); RBC Distribution Width 13.5 % (11.5-14.5); RBC Morphology Normal; Reactive Lymphocytes 1 % (0-10); Sodium 140 mmol/L (136-145); White Blood Cell (WBC) Count 3.7 thou/uL (4.8-10.8)
[2018-12-16] MEDS ORDERED: Acetaminophen 325 MG TAB ONE (19:08)
[2018-12-16] MEDS ORDERED: Ketorolac Tromethamine 30 MG/ML VIAL ONE (21:59)
[2018-12-17] MEDS ORDERED: Amlodipine 10 MG TAB PO SCH (09:00)
[2018-12-17] MEDS ORDERED: Hydrochlorothiazide 25 MG TAB PO SCH (09:00)
[2018-12-17] MEDS ORDERED: Acetaminophen 325 MG TAB ONE (10:30)
[2018-12-17] MEDS ORDERED: Bacitracin Zinc 1 Packet ONE (10:30)
[2018-12-17 11:17] LABS: Cocaine Metabolite Screen Detected (NotDetected); Medtox Reader # READER 4
[2018-12-17 11:18] LABS: Amphetamine Not Detected (NotDetected); Barbiturates Screen Not Detected (NotDetected); Benzodiazepine Screen Not Detected (NotDetected); Medtox Control Line Valid? VALID (VALID); Methadone Not Detected (NotDetected); Methamphetamine Not Detected (NotDetected); Opiate Screen Not Detected (NotDetected); Oxycodone Screen Not Detected (NotDetected); Phencyclidine (PCP) Not Detected (NotDetected); THC/Cannabinoid Screen Not Detected (NotDetected); Tricyclic Screen Not Detected (NotDetected)
[2018-12-17] MEDS ORDERED: Ibuprofen 200 MG TAB ONE (15:35)
[2018-12-17] MEDS ORDERED: traZODone HCl 50 MG TAB PO SCH (21:00)
[2018-12-17] MEDS ORDERED: Ondansetron ODT 4 MG TAB ONE (21:34)
[2018-12-18] MEDS ORDERED: FLUoxetine HCl 20 MG CAP PO SCH (09:00)
[2018-12-18] MEDS ORDERED: Hydrochlorothiazide 25 MG TAB PO SCH (09:00)
[2018-12-18 16:16] LABS: Bilirubin Small (Negative); Blood, Urine Negative (Negative); Glucose, Urine (Dipstick) Negative (Negative); Leukocyte Moderate (Negative); Nitrite Negative (Negative); Protein, Urine (Dipstick) Trace mg/dL (Neg-Trace); Specific Gravity, Urine 1.027 (1.002-1.036); pH, Urine 6.5 (5.0-9.0)
[2018-12-18 16:18] LABS: Bacteria/HPF None Seen HPF (None Seen); Hyaline Casts/LPF 4-6 HYALINE CAST LPF (0-3 Hyaline); Pathc Cast-AUWi Flag 0.95 (0-2.49)
[2018-12-18 16:23] LABS: Clarity Turbid (Clear)
[2018-12-18 16:37] LABS: RBC/HPF 0-3 HPF (0-3)
[2018-12-18 16:38] LABS: Renal Epithelial None Seen HPF (0-3); Transitional Epithelial NONE SEEN HPF (0-3)
== END 2018-12-18 18:33 ==
LOC: ERS 02:21
DX: S02.2XXA Fracture of nasal bones, initial encounter for closed fracture (principal); S00.83XA Contusion of other part of head, initial encounter; S05.11XA Contusion of eyeball and orbital tissues, right eye, initial encounter; F10.129 Alcohol abuse with intoxication, unspecified; Z71.6 Tobacco abuse counseling; I10 Essential (primary) hypertension; F41.9 Anxiety disorder, unspecified; F31.9 Bipolar disorder, unspecified; F20.9 Schizophrenia, unspecified; F17.210 Nicotine dependence, cigarettes, uncomplicated; Z79.899 Other long term (current) drug therapy; Y04.0XXA Assault by unarmed brawl or fight, initial encounter
CPT/HCPCS: 36415; 70450; 70486; 72125; 80053; 80306; 80307; 81003; 81015; 82550; 84443; 84703; 85025; 93005; 96372; 99406; J1885; Q0162

== ENCOUNTER 2019-05-12 11:30 | Observation (INO) | payer SELFPAY ==
[2019-05-12 12:18] LABS: #Basophils 0.1 thou/uL (0.0-0.2); #Eosinphils 0.1 thou/uL (0.0-0.7); #Lymphocytes 2.6 thou/uL (1.20-3.40); #Monocytes 0.7 thou/uL (0.11-0.59); #Neutrophils 2.8 thou/uL (1.40-6.50); %Basophils 0.8 % (0.0-1.0); %Eosinophils 1.6 % (0.0-10.0); %Lymphocytes 41.5 % (21.0-51.0); %Monocytes 11.6 % (0.0-10.0); %Neutrophils 44.5 % (42.0-75.0); Hemoglobin 12.6 g/dL (12.0-16.0); Mean Corpuscular HGB CONC 33.1 g/dL (32.0-36.0); Mean Corpuscular Hemoglobin 32.6 pg (27.0-31.0); Mean Corpuscular Volume 98.6 fL (78.0-98.0); Platelet Count 419 thou/uL (130-400); RBC Distribution Width 12.8 % (11.5-14.5); Red Blood Cell (RBC) Count 3.85 mill/uL (4.20-5.40); White Blood Cell (WBC) Count 6.4 thou/uL (4.8-10.8)
--- NOTE | 2019-05-12 12:21 | CT ---
CT BRAIN NONCONTRAST: DATE: 05/12/2019 HISTORY: 53-year-old female with altered mental status, status post seizure. FINDINGS: There is no evidence of acute intra-axial or extra-axial hemorrhage. There is no midline shift or any other mass effect. There is no extra-axial fluid collection. There is no evidence of obstructive hydrocephalus. Calvarium is intact. IMPRESSION: No acute intracranial findings.
[2019-05-12] MEDS ORDERED: Lorazepam 2 MG/ML VIAL ONE (12:25)
--- NOTE | 2019-05-12 12:38 | RAD ---
RADIOGRAPH CHEST 1 VIEW: DATE: 05/12/2019 HISTORY: 53-year-old female status post seizure and altered mental status. Concern for aspiration. FINDINGS: The ascending thoracic aorta is tortuous and ectatic. There is no evidence of airspace density, pulmo nary edema, or pneumothorax. The lateral costophrenic angles are not effaced. No cardiomegaly. IMPRESSION: 1) No acute pulmonary findings. 2) ectasia of thoracic aorta.
[2019-05-12 12:45] LABS: ALT (SGPT) 94 U/L (8-55); AST (SGOT) 88 U/L (5-34); Acetaminophen Less than 6.0 mcg/mL (10.0-30.0); Albumin 4.5 g/dL (3.5-5.0); Alcohol Less than 10 mg/dL (Less than 10); Alkaline Phosphatase 57 U/L (40-110); Anion Gap 18 mmol/L (10-20); BUN (Urea Nitrogen) 15 mg/dL (9.8-20.1); Bilirubin, Total 0.8 mg/dL (0.2-1.2); CK (CPK) 540 U/L (29-168); Calc. Creatinine Clearance 0 mL/min (70-130); Calcium 9.8 mg/dL (7.8-10.44); Carbon Dioxide 23 mmol/L (22-29); Chloride 100 mmol/L (98-107); Estimated GFR-MDRD 82; Globulin 3.7 g/dL (2.4-3.5); Glucose 92 mg/dL (70-105); Magnesium 2.1 mg/dL (1.6-2.6); Protein, Total 8.2 g/dL (6.0-8.3); Salicylate Less than 8.0 mg/dL (15.0-30.0); Sodium 137 mmol/L (136-145)
[2019-05-12 14:31] LABS: Bacteria/HPF None Seen HPF (None Seen); Bilirubin Negative (Negative); Blood, Urine Negative (Negative); Clarity Clear (Clear); Glucose, Urine (Dipstick) Normal (Negative); Leukocyte 25 Leu/uL (Negative); Nitrite Negative (Negative); Protein, Urine (Dipstick) 30 mg/dL (Neg-Trace); RBC/HPF 0-3 HPF (0-3); Urobilinogen 3 mg/dL (Less than 2)
[2019-05-12 14:37] LABS: Cocaine Metabolite Screen Detected (NotDetected); Medtox Reader # READER 4; Phencyclidine (PCP) Not Detected (NotDetected); THC/Cannabinoid Screen Not Detected (NotDetected)
[2019-05-12 14:38] LABS: Amphetamine Not Detected (NotDetected); Barbiturates Screen Not Detected (NotDetected); Benzodiazepine Screen Not Detected (NotDetected); Medtox Control Line Valid? VALID (VALID); Methadone Not Detected (NotDetected); Methamphetamine Not Detected (NotDetected); Opiate Screen Not Detected (NotDetected); Oxycodone Screen Not Detected (NotDetected); Tricyclic Screen Not Detected (NotDetected)
[2019-05-12] MEDS ORDERED: Lorazepam 1 MG TAB ONE (15:07)
[2019-05-12] MEDS ORDERED: Acetaminophen 500 MG TAB ONE (15:07)
--- NOTE | 2019-05-12 16:15 | PDOC.FPRHP ---
- History of Present Illness Chief Complaint: seizure History of Present Illness: This is a 53yo AA F who presents to the ER for a CC of her heart racing and then a fall. She was smoking a cigar and after about 4-5 puffs she began having these symptoms. She thinks she was down for about 20 min. Denies LOC. Endorses biting her tongue. She denies loss of bowels. She had a friend there that witnessed the fall. Her friend picked her up and put her in the chair. He stated that she was having a seizure and shaking. The patient can recall the entire event. The patient states that she thinks her cigarette was laced with something. Denies hx of seizures. Patient endorses chest pain that radiates down left arm and up to neck. She states it is mostly in the middle of her chest. Endorses cough. Endorses nausea but no vomiting. Denies any abdominal pain. Endorses back pain when she fell. Denies any swelling in her LE. Patient sees [facility] for mental health issues. PCP is Dr. Newell in [place], [place]. It has been 6 mo since she has seen. ED Course: tylenol 1000mg, ativan 1mg x 2, 1L NS - Allergies/Adverse Reactions Allergies Allergy/AdvReac Type Severity Reaction Status Date / Time No Known Allergies Allergy Verified 05/12/19 18:14 - Home Medications Medication Instructions Recorded Confirmed Type Amlodipine [Norvasc] 10 mg PO DAILY #0 tab 05/22/16 04/10/18 Rx Hydrochlorothiazide 12.5 mg PO BID #0 tab 05/22/16 04/10/18 Rx Triamcinolone Acetonide [Kenalog 1 gm TOP BID PRN #0 tube 05/22/16 Rx 0.1% Cream] Albuterol Sulfate [Ventolin HFA] 1 puff INH Q4HR PRN 04/10/18 04/10/18 History Cetirizine HCl [Cetirizine HCl 10 mg PO DAILY 04/10/18 04/10/18 History Chewable Tablet] Meloxicam 15 mg PO DAILY 04/10/18 04/10/18 History hydrOXYzine HCl [Hydroxyzine HCl] 25 mg PO 04/10/18 History traMADol HCl [Ultram] 50 mg PO Q4H PRN #14 tab 04/12/18 Rx - History PMHx: Hep C, ADHD, HTN, anxiety/depression, bipolar PSHx: lumpectomy (left), oophrectomy (left) FHx: Grandparents - CAD, sister/aunt - stroke, sister - seizure Social: endorses hx of drug use - sober since August 2018. Has used alcohol and cocaine. Former cigarette smoker and currently smokes cigars. Has stopped using alcohol since Aug 2018 as well. Lives at home with her friend. - Review of Systems General: denies: fever/chills, weight/appetite/sleep changes, night sweats, fatigue ENT: denies: nasal congestion, rhinorrhea Respiratory: denies: cough, congestion, shortness of breath Cardiovascular: reports: chest pain, palpitation. denies: edema Gastrointestinal: reports: nausea. denies: vomiting, diarrhea, constipation, abdominal pain Genitourinary: denies: dysuria Skin: denies: rashes, lesions Musculoskeletal: reports: tenderness Neurological: reports: seizure. denies: numbness, syncope, weakness Psychological: reports: anxiety, depression - Vital signs BP: 155/101, Pulse: 108, Resp: 17, Pain: 9, O2 sat: 98 on Room Air, Time: 2018 15:00. Weight: 82kg - Physical Exam Constitutional: NAD, awake, alert and oriented, well developed HEENT: normocephalic and atraumatic, EOMI, no scleral icterus, grossly normal hearing, MMM Neck: supple, FROM Heart: RRR, normal S1/S2, no murmurs/rubs/gallops, pulses present Lungs: CTAB, no respiratory distress, good air movement, no wheezing, no retractions Abdomen: soft, non-tender, bowel sounds present, no masses/distention Musculoskeletal: normal structure, normal tone, ROM grossly normal Neurological: no focal deficit, CN II-XII intact, normal sensation, DTRs 2+ Skin: no rash/lesions, good turgor, capillary refill <2 seconds Heme/Lymphatic: no unusual bruising or bleeding, no purpura, no petechia Psychiatric: normal mood and affect, good judgment and insight, intact recent and remote memory FMR H&P: Results - Labs Result Diagrams: 05/13/19 04:46 05/13/19 04:46 Lab results: WBC 6.4 thou/uL (4.8-10.8) 05/12/19 12:09 Hgb 12.6 g/dL (12.0-16.0) 05/12/19 12:09 Hct 38.0 % (36.0-47.0) 05/12/19 12:09 MCV 98.6 fL (78.0-98.0) H 05/12/19 12:09 Plt Count 419 thou/uL (130-400) H 05/12/19 12:09 Neutrophils % 44.5 % (42.0-75.0) 05/12/19 12:09 Sodium 137 mmol/L (136-145) 05/12/19 12:09 Potassium 4.0 mmol/L (3.5-5.1) 05/12/19 12:09 Chloride 100 mmol/L (98-107) 05/12/19 12:09 Carbon Dioxide 23 mmol/L (22-29) 05/12/19 12:09 BUN 15 mg/dL (9.8-20.1) 05/12/19 12:09 Creatinine 0.88 mg/dL (0.6-1.1) 05/12/19 12:09 Glucose 92 mg/dL (70-105) 05/12/19 12:09 Lactic Acid 3.4 mmol/L (0.5-2.2) H 05/12/19 12:09 Calcium 9.8 mg/dL (7.8-10.44) 05/12/19 12:09 Total Bilirubin 0.8 mg/dL (0.2-1.2) 05/12/19 12:09 AST 88 U/L (5-34) H 05/12/19 12:09 ALT 94 U/L (8-55) H 05/12/19 12:09 Alkaline Phosphatase 57 U/L (40-110) 05/12/19 12:09 Creatine Kinase 540 U/L (29-168) H 05/12/19 12:09 Serum Total Protein 8.2 g/dL (6.0-8.3) 05/12/19 12:09 Albumin 4.5 g/dL (3.5-5.0) 05/12/19 12:09 Urine Ketones 40 mg/dL (Negative) A 05/12/19 14:17 Urine Blood Negative (Negative) 05/12/19 14:17 Urine Nitrite Negative (Negative) 05/12/19 14:17 Ur Leukocyte Esterase 25 Randal/uL (Negative) 05/12/19 14:17 Urine RBC 0-3 HPF (0-3) 05/12/19 14:17 Urine WBC 4-6 HPF (0-3) A 05/12/19 14:17 Ur Squamous Epith Cells 4-6 HPF (0-3) A 05/12/19 14:17 Urine Bacteria None Seen HPF (None Seen) 05/12/19 14:17 FMR H&P: A/P - Problem List (1) Anxiety Status: Chronic Code(s): F41.9 - ANXIETY DISORDER, UNSPECIFIED (2) Hepatitis C Status: Chronic Code(s): B19.20 - UNSPECIFIED VIRAL HEPATITIS C WITHOUT HEPATIC COMA (3) Hx of cocaine abuse Status: Chronic Code(s): Z87.898 - PERSONAL HISTORY OF OTHER SPECIFIED CONDITIONS (4) Hypertension Status: Chronic Code(s): I10 - ESSENTIAL (PRIMARY) HYPERTENSION - Plan Pt is a 53 yo female who presents to the emergency department with a fall, chest pain, #Seizure vs Presyncope vs Acute Drug Intoxication Pt experienced a fall after smoking a cigar # Atypical Chest Pain likely secondary to Acute Drug Intoxication vs Anxiety Chest pain pleuritic in nature, non-remitting, sharp, radiates down sternum. Pt is tachycardic. EKG revealed NSR. Heart score 2 - low risk Well's Score 1.5 - low risk - ativan given in the ED - admit to tele - trop neg x 1; trend trops - a1c, lipid panel, tsh pending - asa 81 mg today # Lactic Acidosis - resolved 3.4 --> 0.7 # Elevated Creatinine Kinase 1 L bolus in ED - 2nd L bolus ordered for floor then encourage PO intake. - order for am # Hx of Cocaine abuse Positive UDS - Cocaine - will discuss cocaine use and exacerbation/effects on health in the am. - alcohol level pending # HTN - Elevated on admission. Will continue to monitor and start home meds. # Rhabdo - CK elevated. 2 fluid boluses. Repeat CK in am. # Hx of Bipolar Pt sees [facility] - reconcile meds; pt states she takes seroquel # Hx of Depression - states she takes trazadone # Hep C AST/ALT mildly elevated - no treatment in outpt setting Code: FULL Diet: reg VTE: lovenox Dispo: Admit to tele, obs. LOS < 48hrs Case discussed with Dr. Mendez FMSun H&P: Upper Level - Pertinent history See interns note for full HPI This is a 53yo AA F who presented to the ER after apparently smoking a cigar that was "laced with something." The patient is unsure what it could have been laced with. She states that after a few puffs she started to feel as if her chest was racing and she then fell. She had a friend witness the fall and he stated that she was seizing. The patient can recall the entire event. She states she remembers biting her tongue and shaking. Denies losing her bowels. She denies any post ictal state. The friend was not at the bedside to give any additional info. She states that the friend then sat her up in a chair. She thinks she was down for about 20 min. She endorses chest pain currently on exam that is worse with a breath. States it is in the center/left side of her chest and radiates down her left arm and neck. She denies any diaphoresis. Endorses SOB. Denies fever/chills. Denies abdominal pain. Denies any LE swelling or pain. Endorses low back pain from where she fell. THe patient admits to a hx of cocaine and alcohol abuse. She states she has been sober since Aug 2018. PCP is from [place], [place]. - Pertinent findings PE: General: no acute distress, well developed Cardio: RRR, no murmur rubs or gallops; chest not TTP Abdomen: soft, tender, not distended, normal BS Neuro: CN II-XII intact, no bite norris noted on tongue; extremities 5/5 in strength, sensation intact MSK: left sided paraspinal muscle tenderness Psych: tearful on exam, anxious affect - Plan Date/Time: 05/12/19 [id number] IVal MD, have evaluated this patient and agree with findings/plan as outlined by international sales representative resident. Pertinent changes/additions are listed here. A/P: Seizure vs pre-syncope 2/2 Cocaine Use UDS positive for cocaine. s/p 2mg ativan and 1L NS in the ER. Patient symptoms have no resolved. CT brain normal. - Will obtain prolactin - Will get alcohol level, can start librium taper if necessary. Patient denies alcohol use. Atypical Chest pain Heart score 2- low risk. Trop neg x 1. EKG sinus tach with QTc prolonged at 503. Chest pain likely 2/2 cocaine use vs MSK etiology. Unable to PERC patient out but Wells score low risk. CXR normal - Will continue to trend trop - Will continue to monitor for chest pain, tylenol PRN - Will hold zofran due to QT prolongation on EKG. Can give promethazine if nausea recurs. - Can give tylenol/motrin PRN for pain Rhabdo CK 540. s/p 1L in the ER. - Will give another bolus of IVF and continue on maintenance - Will trend CK Lactic Acidosis, resolved LA 3.4 on admission -> 0.7 s/p 1 L NS - Will give another bolus and encourage PO hydration HTN - Will continue home meds and continue to monitor Psych issues: anxiety/depression/bipolar Follows with MR - Will continue home meds Dispo: admit to tele, obs Addendum - Attending - Attending Attestation Date/Time: 05/12/19 [id number] I personally evaluated the patient and discussed the management with Dr. Mooney and Dr. Gomez I agree with the History, Examination, Assessment and Plan documented above with any addition or exceptions noted below. 53 yo female with history of HTN, substance abuse, HepC, and bipolar disorder presents for evaluation of chest pain and syncopal event. Patient reports smoking a cigar. After about 4 to 5 drags, feels she passed out. Poor memory of events of the evening. Reportedly had chest pain. Now resolved. VS, labs, and imaging reviewed. Agree with PE as documented by resident Patient sitting in bed. Sleepy but awakens for questions. 1. Chest pain: Typical if related to cocaine use. Unsure if vasospasm related or CAD related. Trend trops. Consider stress in AM after risk strification vs outpatient workup. 2. Cocaine use: Continue to monitor on tele. Risk for CV complications for acute use along with active metabolites as well. CCB as needed. Benzo as needed. 3. HTN: PRN IV antihypertensives if needed. Adjust home meds if needed. Unsure if hx of cardiomyopathy. Check BNP. ECHO as needed. 4. Bipolar d/o: Continue home meds. 5. Syncope: CT reviewed. Likely related to cocaine use with possible hypoperfusion. No neurological side effects. Consider MRI in AM if any concern for ischemia. CT if any acute changes overnight to rule out bleeding due to cocaine use. Monitor for arrhythmias. ECHO likely in AM but BNP to see if risk for HF. Orthostatics in AM. Cards as needed. Froilan
[2019-05-12 16:32] LABS: Lactic Acid 0.7 mmol/L (0.5-2.2)
[2019-05-12] MEDS ORDERED: Acetaminophen 325 MG TAB PO PRN (17:08)
[2019-05-12] MEDS ORDERED: traMADol HCl 50 MG TAB PO PRN (17:09)
[2019-05-12 17:32] LABS: Troponin I Less than 0.010 ng/mL (< 0.028)
[2019-05-12] MEDS ORDERED: Sodium Chloride 0.9% 1,000 ML IV SCH (17:58)
[2019-05-12 18:58] LABS: Troponin I Less than 0.010 ng/mL (< 0.028)
[2019-05-12 19:01] VITALS: BMI 32.8
[2019-05-12 19:03] LABS: HIV (1/2) Antibody/Antigen Non-Reactive (NonReactive); HIV 1/2 INDEX 0.07 S/CO (<1.00); Thyroid Stimulating Hormone 1.7355 uIU/mL (0.35-4.94)
[2019-05-12] MEDS: hydrOXYzine 25 MG TAB PO SCH ×2 (19:10→23:56)
[2019-05-12] MEDS: Lactated Ringer's 1,000 ML IV SCH (20:22)
[2019-05-12] MEDS: Hydrochlorothiazide 25 MG TAB PO SCH (20:24)
[2019-05-12] MEDS ORDERED: Acetaminophen 500 MG TAB PO PRN (20:42)
[2019-05-12] MEDS ORDERED: FLU VACC QS2019-20(6MOS UP)/PF 60 MCG/0.5 ML SYRINGE IM ONE (21:00)
[2019-05-12] MEDS ORDERED: Guaifenesin DM 100-10/5 ML UDCUP PO PRN (22:55)
[2019-05-12] MEDS ORDERED: Triple Antibiotic Oint 1 GM Packet TOP SCH (23:00)
[2019-05-13] MEDS ORDERED: Ketorolac Tromethamine 30 MG/ML VIAL IVP SCH ×2 (00:45)
[2019-05-13] MEDS: Lactated Ringer's 1,000 ML IV SCH ×2 (04:31→11:55)
[2019-05-13 05:26] LABS: ALT (SGPT) 68 U/L (8-55); AST (SGOT) 58 U/L (5-34); Alkaline Phosphatase 68 U/L (40-110); Anion Gap 11 mmol/L (10-20); BUN (Urea Nitrogen) 18 mg/dL (9.8-20.1); Bilirubin, Total 0.6 mg/dL (0.2-1.2); CK (CPK) 416 U/L (29-168); Calc. Creatinine Clearance 112 mL/min (70-130); Calcium 8.9 mg/dL (7.8-10.44); Carbon Dioxide 25 mmol/L (22-29); Chloride 105 mmol/L (98-107); Estimated GFR-MDRD Greater than 90; Globulin 3.6 g/dL (2.4-3.5); Glucose 95 mg/dL (70-105); Potassium 3.7 mmol/L (3.5-5.1); Protein, Total 7.6 g/dL (6.0-8.3); Sodium 137 mmol/L (136-145)
[2019-05-13 05:43] LABS: Eosinophils 3 % (0-10); Hemoglobin 12.3 g/dL (12.0-16.0); Lymphocytes 57 % (21-51); MDiff Complete? YES; Mean Corpuscular HGB CONC 33.5 g/dL (32.0-36.0); Mean Corpuscular Hemoglobin 33.1 pg (27.0-31.0); Mean Corpuscular Volume 98.6 fL (78.0-98.0); Mean Platelet Volume 7.3 fL (7.4-10.4); Monocytes 11 % (0-10); Neutrophil 28 % (42-75); Platelet Count 338 thou/uL (130-400); RBC Distribution Width 12.7 % (11.5-14.5); Red Blood Cell (RBC) Count 3.71 mill/uL (4.20-5.40); White Blood Cell (WBC) Count 6.3 thou/uL (4.8-10.8)
[2019-05-13 06:25] LABS: Hemoglobin A1c 4.7 % (4.0-6.0)
[2019-05-13 06:33] LABS: Cardiac Risk 3.4 (Less than 4.5)
[2019-05-13] MEDS: Hydrochlorothiazide 25 MG TAB PO SCH (08:42)
[2019-05-13] MEDS ORDERED: Amlodipine 10 MG TAB PO SCH (09:00)
[2019-05-13] MEDS ORDERED: Triple Antibiotic Oint 1 GM Packet TOP SCH (09:00)
[2019-05-13] MEDS ORDERED: Enoxaparin Sodium 40 MG/0.4 ML SYRINGE SC SCH (09:00)
[2019-05-13] MEDS ORDERED: Meloxicam 15 MG TAB PO SCH (09:00)
--- NOTE | 2019-05-13 11:51 | PDOC.FM ---
- Subjective Subjective: Pt is doing well w/ only mild chest pain, non-radiating, sharp in nature, denies n/v. - Objective Vital Signs & Weight: Vital Signs (12 hours) Temp Pulse Resp BP Pulse Ox 05/13/19 08:41 90 05/13/19 07:53 97.0 F L 90 16 146/74 H 96 05/13/19 03:20 98.6 F 94 18 140/91 H 95 Weight Weight 83.915 kg I&O: 05/12/19 05/13/19 05/14/19 06:59 06:59 06:59 Intake Total 193 860 Output Total 1600 Balance 1937 -0 Result Diagrams: 05/13/19 04:46 05/13/19 04:46 Phys Exam - Physical Examination Constitutional: NAD HEENT: PERRLA, moist MMs Respiratory: no wheezing, no rales, no rhonchi, clear to auscultation bilateral Cardiovascular: RRR, no significant murmur chest wall tenderness Gastrointestinal: soft, non-tender, positive bowel sounds Musculoskeletal: no edema, pulses present Dx/Plan (1) Anxiety Code(s): F41.9 - ANXIETY DISORDER, UNSPECIFIED Status: Chronic (2) Hepatitis C Code(s): B19.20 - UNSPECIFIED VIRAL HEPATITIS C WITHOUT HEPATIC COMA Status: Chronic (3) Hx of cocaine abuse Code(s): Z87.898 - PERSONAL HISTORY OF OTHER SPECIFIED CONDITIONS Status: Chronic (4) Hypertension Code(s): I10 - ESSENTIAL (PRIMARY) HYPERTENSION Status: Chronic - Plan Plan: Pt is a 53 yo female who presents to the emergency department with a fall, chest pain, #Seizure vs Presyncope vs Acute Drug Intoxication Pt experienced a fall after smoking a cigar # Atypical Chest Pain likely secondary to Acute Drug Intoxication vs Anxiety Pt's chest pain likely secondary to cocaine use. Not a high suscpicsion for CAD due to symptom characteristics, PMH. Pt will need follow up in outpt setting with PCP to follow and continue stratification. Discussed discontinuation of cocaine. Chest pain pleuritic in nature, non-remitting, sharp, radiates down sternum. Pt is tachycardic. EKG revealed NSR. Heart score 2 - low risk Well's Score 1.5 - low risk - trop neg x 3 - a1c, lipid, tsh wnl - asa 81 mg today # Lactic Acidosis - resolved 3.4 --> 0.7 # Elevated Creatinine Kinase - resolving 3 L fluids. No kidney dysfunction # Hx of Cocaine abuse Positive UDS - Cocaine - discussed risks - alcohol level not elevated # HTN - Elevated on admission. Will continue to monitor and start home meds. # Hx of Bipolar Pt sees MR - reconcile meds; pt states she takes seroquel # Hx of Depression - states she takes trazadone # Hep C AST/ALT mildly elevated - no treatment; recommended follow up in outpt setting Code: FULL Diet: reg VTE: lovenox Dispo: discharge home
[2019-05-13 12:06] VITALS: BP 117/70; TEMP 98.5
--- NOTE | 2019-05-13 12:50 | PRG ---
DATE OF SERVICE: 05/13/2019 Ms. Reynolds is a 53-year-old black female patient, who is admitted to the hospital with a history of "heart racing." She was having some intermittent sharp left-sided chest discomfort. Her UDS was noted to be positive for cocaine. She was admitted and observed. Her EKG is normal. Her troponin levels were less than 0.010. She was counseled regarding her cocaine use. She also has a history of hepatitis C, which is untreated, and she will be referred for further evaluation of this. This morning, she is resting quietly in bed, in no distress and will be discharged. Job ID: [id number]
--- NOTE | 2019-05-14 14:37 | DIS ---
DATE OF ADMISSION: 05/12/2019 DATE OF DISCHARGE: 05/13/2019 DISCHARGE ATTENDING: Dr. Dre Chairez. RESIDENT: Lauro Mooney DO. ADMITTING ATTENDING: Dr. Ewa Mendez. CONSULTS: None. PROCEDURES: 1. Chest x-ray on 05/12/2019 revealed no acute pulmonary findings. Ectasia of the thoracic aorta. 2. Brain CT revealed no acute intracranial findings. PRIMARY DIAGNOSES: 1. Atypical chest pain. 2. Chest pain rule out. 3. Acute drug intoxication. 4. Lactic acidosis. 5. Rhabdomyolysis. 6. History of cocaine abuse. 7. Hypertension. SECONDARY DIAGNOSES: 1. History of bipolar. 2. History of depression. 3. History of hepatitis C. DISCHARGE MEDICATIONS: 1. Hydrochlorothiazide 12.5 mg p.o. b.i.d. 2. Triamcinolone topical b.i.d. p.r.n. 3. Amlodipine 10 mg p.o. daily. 4. Meloxicam 15 mg p.o. daily. 5. Cetirizine 10 mg p.o. daily p.r.n. 6. Ventolin 1 puff inhaler q.4 p.r.n. 7. Hydroxyzine 25 mg p.o. DISCONTINUED MEDICATIONS: None. HISTORY OF PRESENT ILLNESS/HOSPITAL COURSE: The patient is a 53-year-old lady with past medical history of cocaine abuse, who came to the ED with chief complaint of heart racing with fall. She was worked up for a presyncopal episode and chest pain. She reports she had a presyncopal episode after she smoked a cigar which she believed was laced with drugs. Her UDS was positive for cocaine. She states she did not lose consciousness, but did endorse biting her tongue. She does remember the whole event. She did have a friend that limits her fall and states that she was having seizure-like activity and shaking. The patient denies a postictal state. At that time, she did report chest pain that radiated down her left arm and up to her neck, but was mostly in the middle of the chest. She did not become diaphoretic or nauseated. She denied history of coronary artery disease. She was admitted to the tele floor for watching for any arrhythmias overnight that potentially led to her presyncopal episode. Her EKG at that time was normal sinus rhythm. Heart score was 2, Wells score 1.5. She most likely is having anginal chest pain. She did state that chest pain was worse to touch. The patient was found to have an elevated creatine kinase, lactic acidosis, which was resolved with fluids. Troponins were negative x3. She never had any kidney damage. On discharge, we discussed her symptoms were likely secondary to acute drug intoxication with cocaine. She was advised to quit smoking. She was also having hepatitis C without treatment, so we referred her over to GI. DISPOSITION: Stable. DISCHARGE INSTRUCTIONS: 1. Location: [facility]. 2. Diet: Heart healthy. 3. Activity: Ad alirio. 4. Followup: Follow up with GI. Follow up with PCP. Job ID: [id number]
== END 2019-05-13 14:11 | disposition home or self-care (01) ==
LOC: ERS 11:30 → 2SW 16:16
PROVIDERS: ADMIT Family Medicine; ATTEND Family Medicine
DX: R07.89 Other chest pain (principal); F14.129 Cocaine abuse with intoxication, unspecified; E87.2 Acidosis; M62.82 Rhabdomyolysis; I10 Essential (primary) hypertension; F31.9 Bipolar disorder, unspecified; F41.9 Anxiety disorder, unspecified; F90.9 Attention-deficit hyperactivity disorder, unspecified type; F17.290 Nicotine dependence, other tobacco product, uncomplicated; B18.2 Chronic viral hepatitis C; R55 Syncope and collapse; R56.9 Unspecified convulsions; F20.9 Schizophrenia, unspecified; Z79.899 Other long term (current) drug therapy
CPT/HCPCS: 36415; 51701; 70450; 71045; 80053; 80061; 80306; 80307; 81003; 81015; 82550; 83036; 83605; 83735; 84146; 84443; 84484; 85025; 87324; 87389; 87449; 90471; 90686; 93005; 96361; 96372; 96374; 96375; A4353; G0008; G0378; J1650; J1885; J2060

== ENCOUNTER 2019-09-29 18:07 | Emergency (ER) | payer SELFPAY ==
[2019-09-29 18:59] LABS: #Basophils 0.1 thou/uL (0.0-0.2); #Eosinphils 0.1 thou/uL (0.0-0.7); #Lymphocytes 1.9 thou/uL (1.20-3.40); #Monocytes 0.7 thou/uL (0.11-0.59); #Neutrophils 2.3 thou/uL (1.40-6.50); %Basophils 1.6 % (0.0-1.0); %Eosinophils 1.5 % (0.0-10.0); %Lymphocytes 37.5 % (21.0-51.0); %Neutrophils 46.3 % (42.0-75.0); Hemoglobin 13.1 g/dL (12.0-16.0); Mean Corpuscular HGB CONC 33.1 g/dL (32.0-36.0); Mean Corpuscular Hemoglobin 33.4 pg (27.0-31.0); Mean Platelet Volume 7.2 fL (7.4-10.4); Platelet Count 376 thou/uL (130-400); RBC Distribution Width 12.6 % (11.5-14.5); Red Blood Cell (RBC) Count 3.92 mill/uL (4.20-5.40)
[2019-09-29 19:17] LABS: ALT (SGPT) 54 U/L (8-55); AST (SGOT) 63 U/L (5-34); Albumin 4.4 g/dL (3.5-5.0); Alkaline Phosphatase 53 U/L (40-110); Anion Gap 17 mmol/L (10-20); BUN (Urea Nitrogen) 8 mg/dL (9.8-20.1); Bilirubin, Total 0.7 mg/dL (0.2-1.2); CK (CPK) 335 U/L (29-168); Calc. Creatinine Clearance 0 mL/min (70-130); Calcium 9.6 mg/dL (7.8-10.44); Carbon Dioxide 24 mmol/L (22-29); Chloride 103 mmol/L (98-107); Estimated GFR-MDRD 68; Globulin 3.4 g/dL (2.4-3.5); Glucose 87 mg/dL (70-105); Potassium 3.7 mmol/L (3.5-5.1); Protein, Total 7.8 g/dL (6.0-8.3); Sodium 140 mmol/L (136-145)
--- NOTE | 2019-09-29 19:48 | CT ---
CT HEAD WITHOUT IV CONTRAST COMPARISON: 05/12/2019 HISTORY: Reported seizure. TECHNIQUE: Axial CT imaging at 5 mm intervals from vertex through skull base without contrast FINDINGS: Minimal diminished attenuation is seen in the periventricular white matter which is nonspecific but l ikely reflective of mild chronic small vessel ischemic changes. Small low-density focus is seen in the left thalamus which may represent a lacunar infarction of indeterminate age. No acute cortical in farction is seen. No intraparenchymal or extra-axial hemorrhage is identified. The ventricular system is normal in size, shape, and position. Visualized paranasal sinuses are clear. Osseous structures appear intact. IMPRESSION: 1. Indeterminate age lacunar infarction left thalamus. No acute cortical infarction or hemorrhage is seen.
[2019-09-29 19:50] LABS: Acetaminophen Less than 6.0 mcg/mL (10.0-30.0); Alcohol Less than 10 mg/dL (Less than 10); Salicylate Less than 8.0 mg/dL (15.0-30.0)
--- NOTE | 2019-09-29 19:52 | RAD ---
EXAM: CHEST ONE VIEW HISTORY: Chest pain/seizure. COMPARISON: 05/12/2019 FINDINGS: Cardiac silhouette is magnified by projection. Pulmonary vasculature is within normal limits. The asc ending thoracic aorta remains ectatic to mildly dilated. However, this is unchanged when compared to study on 05/02/2018. The lungs are clear. The osseous structures are intact. Chest is stable compar ed to prior exam. IMPRESSION: 1. Stable chest without evidence of an acute cardiopulmonary process. 2. Stable ectasia to mild dilatation ascending thoracic aorta.
[2019-09-29 20:06] LABS: Amphetamine Not Detected (NotDetected); Barbiturates Screen Not Detected (NotDetected); Benzodiazepine Screen Not Detected (NotDetected); Cocaine Metabolite Screen Detected (NotDetected); Medtox Control Line Valid? VALID (VALID); Medtox Reader # READER 4; Methadone Not Detected (NotDetected); Methamphetamine Not Detected (NotDetected); Opiate Screen Not Detected (NotDetected); Oxycodone Screen Not Detected (NotDetected); Phencyclidine (PCP) Not Detected (NotDetected); THC/Cannabinoid Screen Not Detected (NotDetected); Tricyclic Screen Not Detected (NotDetected)
== END 2019-09-30 03:19 | disposition home or self-care (01) ==
LOC: ERS 18:07
DX: F14.10 Cocaine abuse, uncomplicated (principal); R56.9 Unspecified convulsions; I10 Essential (primary) hypertension; F41.9 Anxiety disorder, unspecified; F31.9 Bipolar disorder, unspecified; F20.9 Schizophrenia, unspecified; F17.210 Nicotine dependence, cigarettes, uncomplicated; Z79.899 Other long term (current) drug therapy
CPT/HCPCS: 36415; 51701; 70450; 71045; 80053; 80306; 80307; 82550; 84146; 84484; 85025; 93005; 96360; 96361; A4353

== ENCOUNTER 2021-09-14 14:31 | Inpatient (IN) | payer SELFPAY ==
[2021-09-14 15:40] LABS: Hemoglobin 12.3 g/dL (12.0-16.0); Mean Corpuscular HGB CONC 33.3 g/dL (32.0-36.0); Platelet Count 272 thou/uL (130-400); RBC Distribution Width 13.1 % (11.5-14.5); Red Blood Cell (RBC) Count 3.63 mill/uL (4.20-5.40); White Blood Cell (WBC) Count 6.1 thou/uL (4.8-10.8)
[2021-09-14 15:48] LABS: PTT 24.1 sec (22.9-36.1); Prothrombin Time 13.5 sec (12.0-14.7)
[2021-09-14 15:50] LABS: D-Dimer Test 0.84 *mcg/mL (0.27-0.43)
[2021-09-14 15:51] LABS: BHCG - Serum Negative (NEGATIVE); Pregs Control Background? CLEAR/WHITE (CLR/WHITE); Pregs Control Bar Appear? YES (CONTROL BAR)
[2021-09-14 16:01] LABS: Acetaminophen Less than 6.0 mcg/mL (10.0-30.0); Alcohol Less than 10 mg/dL (Less than 10); CK (CPK) 1962 U/L (29-168); Magnesium 2.1 mg/dL (1.6-2.6); Salicylate Less than 8.0 mg/dL (15.0-30.0)
[2021-09-14 16:02] LABS: Band 1 % (5-11); Eosinophils 1 % (0-10); Lymphocytes 53 % (21-51); MDiff Complete? YES; Macrocytosis SLIGHT = 6-15 cells (100X) (0-5/hpf); Monocytes 8 % (0-10); Neutrophil 36 % (42-75); Platelet Morphology Comment Appears Adequate; Polychromasia SLIGHT = 2-3 cells (100X) (0-2/hpf); Reactive Lymphocytes 1 % (0-10)
[2021-09-14 16:03] LABS: ALT (SGPT) 84 U/L (8-55); AST (SGOT) 117 U/L (5-34); Albumin 4.2 g/dL (3.5-5.0); Alkaline Phosphatase 53 U/L (40-110); Anion Gap 24 mmol/L (10-20); BUN (Urea Nitrogen) 17 mg/dL (9.8-20.1); Bilirubin, Total 1.3 mg/dL (0.2-1.2); CRP (Inflammatory) 1.29 mg/dL (= or < 0.5); Calc. Creatinine Clearance 0 mL/min (70-130); Calcium 9.4 mg/dL (7.8-10.44); Carbon Dioxide 17 mmol/L (22-29); Chloride 99 mmol/L (98-107); Globulin 4.2 g/dL (2.4-3.5); Glucose 90 mg/dL (70-105); Lipase 36 U/L (8-78); Potassium 3.6 mmol/L (3.5-5.1); Protein, Total 8.4 g/dL (6.0-8.3); Sodium 136 mmol/L (136-145)
[2021-09-14 16:56] LABS: Thyroid Stimulating Hormone 0.8915 uIU/mL (0.35-4.94)
[2021-09-14] MEDS ORDERED: Lorazepam 2 MG/ML VIAL ONE (17:43)
[2021-09-14 17:53] LABS: Bacteria/HPF None Seen HPF (None Seen); Bilirubin Negative (Negative); Blood, Urine Trace (Negative); Clarity Clear (Clear); Glucose, Urine (Dipstick) Normal (Negative); Ketone, Urine Negative (Negative); Leukocyte Negative Leu/uL (Negative); Nitrite Negative (Negative); Protein, Urine (Dipstick) Negative (Neg-Trace); RBC/HPF 0-3 HPF (0-3); Specific Gravity, Urine 1.011 (1.002-1.036); Squamous Epithelial 0-3 HPF (0-3); WBC/HPF 0-3 HPF (0-3)
[2021-09-14 17:59] LABS: Amphetamine Not Detected (NotDetected); Barbiturates Screen Not Detected (NotDetected); Benzodiazepine Screen Not Detected (NotDetected); Cocaine Metabolite Screen Detected (NotDetected); Methadone Not Detected (NotDetected); Methamphetamine Not Detected (NotDetected); Opiate Screen Not Detected (NotDetected); Oxycodone Screen Not Detected (NotDetected); Phencyclidine (PCP) Not Detected (NotDetected); THC/Cannabinoid Screen Not Detected (NotDetected); Tricyclic Screen Not Detected (NotDetected)
[2021-09-14] MEDS ORDERED: Acetaminophen 650 MG Suppository PR PRN (18:34)
[2021-09-14] MEDS ORDERED: Dextrose 50% Abboject 50 ML SYRINGE SLOW IVP PRN (18:34)
[2021-09-14] MEDS ORDERED: Senokot S 8.6-50 MG TAB PO PRN (18:34)
[2021-09-14] MEDS ORDERED: Dextrose 5% in Water 1,000 ML IV PRN (18:34)
[2021-09-14] MEDS ORDERED: Lorazepam 2 MG/ML VIAL IM PRN (18:34)
[2021-09-14] MEDS ORDERED: Ondansetron PF 4 MG/2 ML Vial IVP PRN (18:34)
[2021-09-14] MEDS ORDERED: Ondansetron ODT 4 MG TAB PO PRN (18:34)
[2021-09-14] MEDS ORDERED: Lorazepam 1 MG TAB PO PRN (18:34)
[2021-09-14] MEDS ORDERED: Bisacodyl 5 MG TAB PO PRN (18:34)
[2021-09-14] MEDS ORDERED: Electrolyte Replacement Protocol 1 EACH FS SCH (18:45)
[2021-09-14] MEDS ORDERED: hydrALAZINE 20 MG/ML VIAL SLOW IVP PRN (18:48)
[2021-09-14] MEDS ORDERED: Melatonin 3 MG TAB PO PRN (18:48)
[2021-09-14] MEDS ORDERED: Lorazepam 2 MG/ML VIAL SLOW IVP PRN (19:03)
[2021-09-14] MEDS ORDERED: Folic Acid 1 MG TAB PO SCH (19:15)
[2021-09-14] MEDS ORDERED: Multivit, Therapeutic 1 TAB PO SCH (19:15)
[2021-09-14] MEDS ORDERED: Multivitamins, Adult 10 ML, Folic Acid 1 MG in Dextrose 5 %-0.45 % NaCl 1,000 ML IV SCH (20:00)
[2021-09-14 21:32] VITALS: BMI 32.3
[2021-09-14] MEDS: Lorazepam 1 MG TAB PO SCH (21:48)
[2021-09-14] MEDS: Sodium Chloride 0.9% 1,000 ML IV SCH (21:58)
[2021-09-14] MEDS: Thiamine HCl 200 MG/2 ML VIAL SLOW IVP SCH (21:59)
[2021-09-14] MEDS ORDERED: Folic Acid 1 MG in Syringe 0 ML IM SCH (22:30)
[2021-09-15] MEDS: Lorazepam 1 MG TAB PO SCH ×3 (01:47→13:32)
[2021-09-15] MEDS: Sodium Chloride 0.9% 1,000 ML IV SCH ×4 (04:49→23:16)
[2021-09-15 05:31] LABS: #Basophils 0.1 thou/uL (0.0-0.2); #Eosinphils 0.2 thou/uL (0.0-0.7); #Lymphocytes 2.3 thou/uL (1.20-3.40); #Monocytes 0.4 thou/uL (0.11-0.59); #Neutrophils 2.3 thou/uL (1.40-6.50); %Basophils 1.2 % (0.0-1.0); %Eosinophils 3.5 % (0.0-10.0); %Lymphocytes 44.7 % (21.0-51.0); %Monocytes 7.4 % (0.0-10.0); %Neutrophils 43.2 % (42.0-75.0); Hemoglobin 12.2 g/dL (12.0-16.0); Mean Platelet Volume 6.7 fL (7.4-10.4); Platelet Count 296 thou/uL (130-400); RBC Distribution Width 13.3 % (11.5-14.5); Red Blood Cell (RBC) Count 3.61 mill/uL (4.20-5.40); White Blood Cell (WBC) Count 5.2 thou/uL (4.8-10.8)
[2021-09-15 05:44] LABS: ALT (SGPT) 70 U/L (8-55); AST (SGOT) 84 U/L (5-34); Albumin 3.7 g/dL (3.5-5.0); Alkaline Phosphatase 48 U/L (40-110); Anion Gap 13 mmol/L (10-20); BUN (Urea Nitrogen) 11 mg/dL (9.8-20.1); Bilirubin, Total 1.2 mg/dL (0.2-1.2); Calc. Creatinine Clearance 108 mL/min (70-130); Calcium 8.7 mg/dL (7.8-10.44); Carbon Dioxide 26 mmol/L (22-29); Cardiac Risk 4.7 (Less than 4.5); Chloride 103 mmol/L (98-107); Cholesterol 165 mg/dl (< 200 Desired); Globulin 3.6 g/dL (2.4-3.5); Glucose 86 mg/dL (70-105); HDL Cholesterol 35 mg/dL (>60 Neg Risk); LDL Cholesterol, Calculated 117 mg/dL; Protein, Total 7.3 g/dL (6.0-8.3); Sodium 139 mmol/L (136-145); Triglycerides 67 mg/dL (Less than 150)
[2021-09-15] MEDS ORDERED: Sodium Chloride 0.9% 1,000 ML IV SCH (06:07)
[2021-09-15] MEDS ORDERED: Potassium Chloride 20 MEQ TAB PO SCH (07:00)
[2021-09-15] MEDS ORDERED: Thiamine HCl 200 MG/2 ML VIAL SLOW IVP SCH (08:00)
[2021-09-15] MEDS: Multivit, Therapeutic 1 TAB PO SCH (08:16)
[2021-09-15] MEDS: Folic Acid 1 MG TAB PO SCH (08:16)
[2021-09-15] MEDS ORDERED: Aspirin 300 MG Suppository PR SCH (09:00)
[2021-09-15 10:50] LABS: SARS-CoV-2 PCR by NAA Not Detected (NotDetected)
[2021-09-15 11:36] LABS: Thyroid Stimulating Hormone 0.8605 uIU/mL (0.35-4.94)
[2021-09-15 13:20] LABS: Syphilis Antibody INDETERMINATE (Nonreactive); Syphilis Antibody Index 6.81 S/CO (<1.00 Non-Reactive)
[2021-09-15] MEDS ORDERED: Lorazepam 1 MG TAB PO PRN (18:35)
[2021-09-15] MEDS: Acetaminophen 325 MG TAB PO PRN (20:50)
[2021-09-15] MEDS: Thiamine HCl 200 MG/2 ML VIAL SLOW IVP SCH (20:51)
[2021-09-15] MEDS: Pantoprazole 40 MG VIAL IVP SCH (20:51)
[2021-09-16] MEDS: Sodium Chloride 0.9% 1,000 ML IV SCH ×4 (05:32→21:31)
[2021-09-16 08:49] LABS: ALT (SGPT) 54 U/L (8-55); AST (SGOT) 53 U/L (5-34); Albumin 3.5 g/dL (3.5-5.0); Alkaline Phosphatase 49 U/L (40-110); Anion Gap 13 mmol/L (10-20); BUN (Urea Nitrogen) 9 mg/dL (9.8-20.1); Bilirubin, Total 0.7 mg/dL (0.2-1.2); Calc. Creatinine Clearance 114 mL/min (70-130); Calcium 8.5 mg/dL (7.8-10.44); Carbon Dioxide 23 mmol/L (22-29); Chloride 106 mmol/L (98-107); Globulin 3.4 g/dL (2.4-3.5); Glucose 78 mg/dL (70-105); Potassium 3.3 mmol/L (3.5-5.1); Protein, Total 6.9 g/dL (6.0-8.3); Sodium 139 mmol/L (136-145)
[2021-09-16] MEDS: Multivit, Therapeutic 1 TAB PO SCH (09:00)
[2021-09-16] MEDS: Pantoprazole 40 MG VIAL IVP SCH ×2 (09:00→20:25)
[2021-09-16] MEDS: Folic Acid 1 MG TAB PO SCH (09:00)
[2021-09-16] MEDS: Aspirin 81 mg Enteric Coated Tablet PO SCH (09:00)
[2021-09-16] MEDS: Acetaminophen 325 MG TAB PO PRN ×3 (09:02→23:40)
[2021-09-16] MEDS ORDERED: Potassium Chloride 20 MEQ TAB PO SCH (10:30)
[2021-09-16 12:48] LABS: HIV (1/2) Antibody/Antigen Non-Reactive (NonReactive)
[2021-09-16 17:30] LABS: Potassium 3.5 mmol/L (3.5-5.1)
[2021-09-16] MEDS ORDERED: Lorazepam 1 MG TAB PO PRN (18:35)
[2021-09-16] MEDS ORDERED: Lorazepam 0.5 MG TAB PO SCH (18:45)
[2021-09-16] MEDS: Thiamine HCl 200 MG/2 ML VIAL SLOW IVP SCH (20:25)
[2021-09-17 06:15] LABS: Anion Gap 10 mmol/L (10-20); BUN (Urea Nitrogen) 8 mg/dL (9.8-20.1); CK (CPK) 197 U/L (29-168); Calc. Creatinine Clearance 112 mL/min (70-130); Calcium 8.2 mg/dL (7.8-10.44); Carbon Dioxide 24 mmol/L (22-29); Chloride 106 mmol/L (98-107); Glucose 89 mg/dL (70-105); Potassium 3.3 mmol/L (3.5-5.1); Sodium 137 mmol/L (136-145)
[2021-09-17] MEDS ORDERED: Potassium Chloride 20 MEQ TAB PO SCH (06:45)
[2021-09-17 07:48] LABS: Magnesium 1.2 mg/dL (1.6-2.6)
[2021-09-17] MEDS: Acetaminophen 325 MG TAB PO PRN ×2 (08:40→20:41)
[2021-09-17] MEDS: Thiamine 100 MG TAB PO SCH (08:41)
[2021-09-17] MEDS: Folic Acid 1 MG TAB PO SCH (08:41)
[2021-09-17] MEDS: Multivit, Therapeutic 1 TAB PO SCH (08:41)
[2021-09-17] MEDS: Aspirin 81 mg Enteric Coated Tablet PO SCH (08:41)
[2021-09-17] MEDS: Pantoprazole 40 MG VIAL IVP SCH ×2 (08:42→22:09)
[2021-09-17] MEDS: Sodium Chloride 0.9% 1,000 ML IV SCH ×3 (08:55→19:00)
[2021-09-17] MEDS ORDERED: Magnesium Sulfate 4 GM in Sodium Chloride 0.9% 250 ML 250 ML IVPB SCH (10:30)
[2021-09-17] MEDS ORDERED: traMADol HCl 50 MG TAB PO SCH (14:15)
[2021-09-17] MEDS ORDERED: Meloxicam 15 MG TAB PO SCH (18:45)
[2021-09-17] MEDS: Melatonin 3 MG TAB PO SCH (21:37)
[2021-09-18] MEDS: Pantoprazole 40 MG VIAL IVP SCH ×3 (00:22→20:49)
[2021-09-18] MEDS: Acetaminophen 325 MG TAB PO PRN ×3 (00:41→19:14)
[2021-09-18] MEDS: Lorazepam 0.5 MG TAB PO PRN (00:41)
[2021-09-18] MEDS: traMADol HCl 50 MG TAB PO PRN ×2 (00:42→09:28)
[2021-09-18] MEDS: Sodium Chloride 0.9% 1,000 ML IV SCH ×4 (04:18→21:05)
[2021-09-18 05:12] LABS: Hemoglobin 11.4 g/dL (12.0-16.0); Mean Corpuscular HGB CONC 32.1 g/dL (32.0-36.0); Mean Corpuscular Hemoglobin 33.6 pg (27.0-31.0); Mean Platelet Volume 6.4 fL (7.4-10.4); Platelet Count 314 thou/uL (130-400); RBC Distribution Width 12.8 % (11.5-14.5); White Blood Cell (WBC) Count 5.7 thou/uL (4.8-10.8)
[2021-09-18 05:37] LABS: Anion Gap 11 mmol/L (10-20); BUN (Urea Nitrogen) 10 mg/dL (9.8-20.1); Calc. Creatinine Clearance 122 mL/min (70-130); Calcium 8.5 mg/dL (7.8-10.44); Carbon Dioxide 25 mmol/L (22-29); Chloride 104 mmol/L (98-107); Glucose 91 mg/dL (70-105); Potassium 3.7 mmol/L (3.5-5.1); Sodium 136 mmol/L (136-145)
[2021-09-18] MEDS ORDERED: Magnesium 2 GM/50 ML 2 GM in Premix Bag 1 BAG IVPB SCH (06:00)
[2021-09-18] MEDS: Folic Acid 1 MG TAB PO SCH (08:14)
[2021-09-18] MEDS: Multivit, Therapeutic 1 TAB PO SCH (08:14)
[2021-09-18] MEDS: Aspirin 81 mg Enteric Coated Tablet PO SCH (08:14)
[2021-09-18] MEDS: Thiamine 100 MG TAB PO SCH (08:15)
[2021-09-18] MEDS ORDERED: Thiamine 100 MG TAB PO SCH (09:00)
[2021-09-18] MEDS ORDERED: HYDROcodone/Acetaminophen 7.5/325 mg Tablet PO SCH (11:00)
[2021-09-18] MEDS: Melatonin 3 MG TAB PO SCH (20:49)
[2021-09-19] MEDS: Sodium Chloride 0.9% 1,000 ML IV SCH (02:26)
[2021-09-19] MEDS: Lorazepam 0.5 MG TAB PO PRN (02:52)
[2021-09-19] MEDS: Acetaminophen 325 MG TAB PO PRN ×4 (05:08→22:04)
[2021-09-19] MEDS: Aspirin 81 mg Enteric Coated Tablet PO SCH (09:01)
[2021-09-19] MEDS: Folic Acid 1 MG TAB PO SCH (09:03)
[2021-09-19] MEDS: Amlodipine 10 MG TAB PO SCH (09:04)
[2021-09-19] MEDS: Pantoprazole 40 MG VIAL IVP SCH ×2 (09:04→21:50)
[2021-09-19] MEDS: Multivit, Therapeutic 1 TAB PO SCH (09:04)
[2021-09-19] MEDS: Hydrochlorothiazide 25 MG TAB PO SCH (09:05)
[2021-09-19] MEDS: Thiamine 100 MG TAB PO SCH (09:07)
[2021-09-19 16:32] LABS: Magnesium 1.5 mg/dL (1.6-2.6)
[2021-09-19] MEDS ORDERED: Magnesium 2 GM/50 ML 2 GM in Premix Bag 1 BAG IVPB SCH (17:00)
[2021-09-19] MEDS: Melatonin 3 MG TAB PO SCH (21:50)
[2021-09-20] MEDS: Acetaminophen 325 MG TAB PO PRN ×3 (02:35→20:29)
[2021-09-20 05:20] LABS: Magnesium 1.9 mg/dL (1.6-2.6)
[2021-09-20] MEDS ORDERED: Magnesium 2 GM/50 ML 2 GM in Premix Bag 1 BAG IVPB SCH (07:00)
[2021-09-20] MEDS: Thiamine 100 MG TAB PO SCH (09:20)
[2021-09-20] MEDS: Hydrochlorothiazide 25 MG TAB PO SCH (09:21)
[2021-09-20] MEDS: Folic Acid 1 MG TAB PO SCH (09:21)
[2021-09-20] MEDS: Aspirin 81 mg Enteric Coated Tablet PO SCH (09:21)
[2021-09-20] MEDS: Multivit, Therapeutic 1 TAB PO SCH (09:22)
[2021-09-20] MEDS: Amlodipine 10 MG TAB PO SCH (09:22)
[2021-09-20] MEDS: Pantoprazole 40 MG VIAL IVP SCH ×2 (09:22→20:29)
[2021-09-20 19:49] VITALS: BP 153/99; TEMP 98.1
[2021-09-20] MEDS ORDERED: Atorvastatin Calcium 40 MG TAB PO SCH (21:00)
== END 2021-09-20 21:35 | disposition home or self-care (01) | DRG 917 ==
LOC: ERS 14:31 → NEURO 18:29
PROVIDERS: ADMIT Hospitalist; ATTEND Internal Medicine
PROC: HZ2ZZZZ Detoxification Services for Substance Abuse Treatment (ICD-10-PCS; principal; 2021-09-14)
DX: T40.5X1A Poisoning by cocaine, accidental (unintentional), initial encounter (principal); G92.8 Other toxic encephalopathy; M62.82 Rhabdomyolysis; F14.10 Cocaine abuse, uncomplicated; Z20.822 Contact with and (suspected) exposure to COVID-19; M19.90 Unspecified osteoarthritis, unspecified site; R74.01 Elevation of levels of liver transaminase levels; R79.89 Other specified abnormal findings of blood chemistry; F16.10 Hallucinogen abuse, uncomplicated; B18.2 Chronic viral hepatitis C; E87.6 Hypokalemia; I10 Essential (primary) hypertension; F10.11 Alcohol abuse, in remission; E11.9 Type 2 diabetes mellitus without complications; Z86.73 Personal history of transient ischemic attack (TIA), and cerebral infarction without residual deficits; Z71.51 Drug abuse counseling and surveillance of drug abuser
CPT/HCPCS: 36415; 36416; 70450; 70551; 71045; 72125; 72170; 80048; 80053; 80061; 80306; 80307; 81003; 81015; 82140; 82550; 82607; 82746; 83036; 83605; 83690; 83735; 84100; 84146; 84425; 84443; 84484; 84703; 85025; 85027; 85379; 85610; 85730; 86140; 86593; 86780; 87389; 93005; 94760; 96374; C9113; J0360; J2060; J3411; J3475; J7050; U0003; U0005

== ENCOUNTER 2024-09-08 08:23 | Emergency (ER) | payer OTHER, SELFPAY ==
[2024-09-08] MEDS ORDERED: Lidocaine 1% w/Epinephrine 1:100K 20 ML VIAL ONE (08:54)
== END 2024-09-08 09:30 | disposition home or self-care (01) ==
LOC: ERS 08:23
DX: M67.40 Ganglion, unspecified site (principal); I10 Essential (primary) hypertension; R05.9 Cough, unspecified; F17.210 Nicotine dependence, cigarettes, uncomplicated
CPT/HCPCS: 10060

== ENCOUNTER 2025-04-02 12:44 | Emergency (ER) | payer OTHER ==
[2025-04-02] MEDS ORDERED: Acetaminophen 500 MG TAB ONE (13:18)
[2025-04-02] MEDS ORDERED: Boostrix 0.5 ML (Tdap) VIAL (>/=7 yrs of age) ONE (13:19)
[2025-04-02 14:17] LABS: Bacteria/HPF 1+ HPF (None Seen); CAUTI Indications for Culture Alt mental st,lethar; Glucose, Urine (Dipstick) Normal (Negative); Leukocyte Negative Leu/uL (Negative); Protein, Urine (Dipstick) Negative (Neg-Trace); RBC/HPF None Seen HPF (0-3); Specific Gravity, Urine 1.004 (1.002-1.036)
[2025-04-02 14:18] LABS: Urine Culture Reflex No No
[2025-04-02 14:21] LABS: Cocaine Metabolite Screen PRELIM POSITIVE (Negative); THC/Cannabinoid Screen Negative (Negative); Tricyclic Screen Negative (Negative)
[2025-04-02 15:22] LABS: Acetaminophen 13 mcg/mL (Less than 10); Salicylate Less than 8.0 mg/dL (Less than 8.0)
== END 2025-04-02 15:16 | disposition home or self-care (01) ==
LOC: ERS 12:44
DX: S01.81XA Laceration without foreign body of other part of head, initial encounter (principal); K59.00 Constipation, unspecified; J32.9 Chronic sinusitis, unspecified; I10 Essential (primary) hypertension; F17.210 Nicotine dependence, cigarettes, uncomplicated; Y04.2XXA Assault by strike against or bumped into by another person, initial encounter
CPT/HCPCS: 36415; 70450; 70486; 72125; 72170; 80306; 80307; 81001; 90471; 90715

== ENCOUNTER 2025-04-02 21:56 | Emergency (ER) | payer OTHER ==
[2025-04-02] MEDS ORDERED: Acetaminophen 500 MG TAB ONE (22:12)
[2025-04-02] MEDS ORDERED: Ibuprofen 200 MG TAB ONE (22:12)
== END 2025-04-02 22:25 | disposition home or self-care (01) ==
LOC: ERS 21:56
DX: R51.9 Headache, unspecified (principal); I10 Essential (primary) hypertension; F17.210 Nicotine dependence, cigarettes, uncomplicated; S09.90XA Unspecified injury of head, initial encounter; K59.00 Constipation, unspecified; J32.9 Chronic sinusitis, unspecified; Y04.2XXA Assault by strike against or bumped into by another person, initial encounter
CPT/HCPCS: 36415; 70450; 70486; 72125; 72170; 80306; 80307; 81001; 90471; 90715; 99283